=== PATIENT | male | born 1975 | race Caucasian/White ===

== ENCOUNTER 2017-07-27 14:03 | Inpatient (IN) | payer MEDICAID, OTHER ==
[~2017-07-27] VITALS: Ht 180.3 cm; Wt 100.5 kg
[~2017-07-27 14:03] MED LIST: DIFL500T PO; METF500T4 PO
[2017-07-27] MEDS ORDERED: PIPER-TAZO 3.375 GM IV (PMX) 50 ML IVPB STA (16:25)
[2017-07-27] MEDS ORDERED: VANCOMYCIN 1 GM (PMX) 250 ML IVPB STA (16:25)
[2017-07-27] MEDS ORDERED: SOD CHLORIDE 0.9% 1,000 ML IV STA (16:25)
--- NOTE | 2017-07-27 16:40 | ERD ---
ER Documentation Chief Complaint Chief Complaint SENT BY [facility] FOR LT 2ND TOE INFECTION TREATMENT HPI 41-year-old male with a history of type 2 diabetes on metformin presenting to the ER complaining of left foot second toe infection. His symptoms started about 5 days ago. He noticed some swelling of the toe and redness. He does not feel pain because of his peripheral neuropathy. Over the last few days it has been getting worse and now he has red streaking going up his inner leg and thigh. He does feel pain in those areas. He has had associated fevers and chills. He has noticed some purulent drainage from the base of the toenail. He went to [place] this morning and had a workup there as well. He was seen by a lavatory attendant and admission was recommended for IV antibiotics. His toenail was removed with some purulent drainage. He was also found to have an old underlying fracture. He was given oral antibiotics but told to follow-up at another hospital for admission as he is not a [facility] member. ROS All systems reviewed and are negative except as per history of present illness. Medications Home Meds Active Scripts Diflunisal (Dolobid) 500 Mg Tablet, 500 MG PO BID for PAIN, #8 TAB With Food or milk Prov:ELIZA WELLS MD 12/14/15 Metformin* (Glucophage*) 500 Mg Tab, 500 MG PO DAILY, #30 TAB Prov:ELIZA WELLS MD 12/14/15 Allergies Allergies: Coded Allergies: No Known Allergy (Unverified , 12/14/15) PMhx/Soc Medical and Surgical Hx: pt denies Surgical Hx History of Surgery: No Hx Neurological Disorder: No Hx Respiratory Disorders: No Hx Cardiac Disorders: No Hx Psychiatric Problems: No Hx Miscellaneous Medical Probl: Yes (Diabetes) Hx Alcohol Use: Yes (Occasionally) Hx Substance Use: No Hx Tobacco Use: No Smoking Status: Never smoker FmHx Family History: No coronary disease Physical Exam Vitals Vital Signs Date Time Temp Pulse Resp B/P Pulse Ox O2 Delivery O2 Flow Rate FiO2 07/27/17 14:11 99.1 111 18 123/73 98 Physical Exam Const: Well-appearing, no apparent distress Head: Atraumatic Eyes: Normal Conjunctiva ENT: Normal External Ears, Nose and Mouth. Neck: Full range of motion..~ No meningismus. Resp: Clear to auscultation bilaterally Cardio: tachycardic, regular rhythm, no murmurs Abd: Soft, non tender, non distended. Normal bowel sounds Skin: No petechiae or rashes Back: No midline or flank tenderness Ext: No cyanosis or edema. Left lower extremity: left foot second toe with sausagelike swelling and erythema. The nail has been removed. There is some sanguinous cloudy drainage from the nail bed. No tenderness to palpation. There is warmth to palpation. There is a lymphangitis going up the foot up to the level of the inner thigh. There is also petechiae of the inner lower leg and thigh. 2+ distal pulses. Right lower extremity unremarkable. No calf tenderness Neur: Awake and alert Psych: Normal Mood and Affect Result Diagram: 07/27/17 1645 07/27/17 1645 Results 24 hrs Laboratory Tests Test 07/27/17 16:45 White Blood Count 6.410^3/ul Red Blood Count 4.4510^6/ul Hemoglobin 14.4g/dl Hematocrit 40.9% Mean Corpuscular Volume 91.9fl Mean Corpuscular Hemoglobin 32.4pg Mean Corpuscular Hemoglobin Concent 35.2g/dl Red Cell Distribution Width 11.7% Platelet Count 97623^3/UL Mean Platelet Volume 11.0fl Neutrophils % 66.8% Lymphocytes % 16.8% Monocytes % 14.6% Eosinophils % 1.2% Basophils % 0.3% Nucleated Red Blood Cells % 0.0/100WBC Neutrophils # 4.310^3/ul Lymphocytes # 1.110^3/ul Monocytes # 0.910^3/ul Eosinophils # 0.110^3/ul Basophils # 0.010^3/ul Nucleated Red Blood Cells # 0.010^3/ul Prothrombin Time 13.5Sec Prothrombin Time Ratio 1.1 INR International Normalized Ratio 1.03 Activated Partial Thromboplast Time 30.1Sec Sodium Level 135mmol/L Potassium Level 4.4mmol/L Chloride Level 98mmol/L Carbon Dioxide Level 24mmol/L Anion Gap 17 Blood Urea Nitrogen 24mg/dl Creatinine 1.02mg/dl Glucose Level 303mg/dl Calcium Level 9.3mg/dl Total Bilirubin 2.4mg/dl Direct Bilirubin 0.00mg/dl Indirect Bilirubin 2.4mg/dl Aspartate Amino Transf (AST/SGOT) 25IU/L Alanine Aminotransferase (ALT/SGPT) 35IU/L Alkaline Phosphatase 83IU/L Total Protein 8.0g/dl Albumin 4.3g/dl Globulin 3.70g/dl Albumin/Globulin Ratio 1.16 Current Medications Medications (Trade) Dose Ordered Sig/Ana Lilia Route PRN Reason Start Time Stop Time Status Last Admin Dose Admin Vancomycin HCl 250 ml @ 125 mls/hr ONCE STAT IVPB 07/27/17 16:25 07/27/17 18:24 Piperacillin Sod/ Tazobactam Sod 50 ml @ 100 mls/hr ONCE STAT IVPB 07/27/17 16:25 07/27/17 16:54 DC 07/27/17 17:00 Sodium Chloride (NS) 1,000 ml @ 1,000 mls/hr Q1H STAT IV 07/27/17 16:25 07/27/17 17:24 DC 07/27/17 17:30 Ondansetron HCl (Zofran Inj) 4 mg BRIDGE ORDER PRN IV NAUSEA AND/OR VOMITING 07/27/17 18:00 07/28/17 17:59 Acetaminophen (Tylenol Tab) 650 mg ER BRIDGE PRN PO MILD PAIN/FEVER 07/27/17 18:00 07/28/17 17:59 Procedures/MDM EMERGENT LABS AND DIAGNOSTIC STUDIES: Lab Results above were reviewed and interpreted by me. CBC: thrombocytopenia. no leukocytosis, CMP: elevated BUN, hyperglycemia, isolated elevated T BIli Radiology: Reviewed outside films for foot XRay done at [place]. Shows old healing 2nd phalanx fracture with large callous. Initial Nursing notes reviewed. Previous Medical Records requested via the Electronic Health Record. EMERGENCY DEPARTMENT COURSE / MEDICAL DECISION MAKING: Patient is presenting with left lower extremity cellulitis of the second toe with lymphangitis up his leg. There is no evidence of sepsis at this time. Blood cultures were done. IV antibiotics were started for diabetic foot infection. Patient's blood sugar is out of control but there is no evidence of acidosis. IV fluids given. Patient is high risk for worsening of his infection and will likely need admission for observation and IV antibiotics. At this time there is no evidence of necrotizing soft tissue infection. Accepting Care Team: Current data and ongoing care discussed. Time: Time of admission Primary Provider: Panel team Departure Diagnosis: Primary Impression: Cellulitis of left toe Additional Impressions: Acute lymphangitis of left lower extremity Hyperglycemia due to type 2 diabetes mellitus Diabetes mellitus local intermodal truck driver insulin use: without local intermodal truck driver use Qualified Code : E11.65 - Type 2 diabetes mellitus with hyperglycemia, without long-term current use of insulin Condition: JESUSITA Singleton MD Jul 27, 2017 16:40
[2017-07-27 17:18] LABS: BASOPHILS % 0.3 % (0.0-2.0); EOSINOPHILS # 0.1 10^3/ul (0.0-0.5); EOSINOPHILS % 1.2 % (0.0-7.0); HEMATOCRIT 40.9 % (42.0-52.0); HEMOGLOBIN 14.4 g/dl (14.0-18.0); LYMPHOCYTES # 1.1 10^3/ul (0.8-2.9); LYMPHOCYTES % 16.8 % (15.0-51.0); MEAN CORPUSCULAR HEMOGLOBIN 32.4 pg (29.0-33.0); MEAN CORPUSCULAR HGB CONC 35.2 g/dl (32.0-37.0); MEAN CORPUSCULAR VOLUME 91.9 fl (82.0-101.0); MONOCYTE # 0.9 10^3/ul (0.3-0.9); MONOCYTES % 14.6 % (0.0-11.0); NEUTROPHIL # 4.3 10^3/ul (1.6-7.5); NEUTROPHILS % 66.8 % (39.0-77.0); PLATELET COUNT 134 10^3/UL (140-415); POSITIVE DIFF @See below; RED BLOOD COUNT 4.45 10^6/ul (4.70-6.10); RED CELL DISTRIBUTION WIDTH 11.7 % (11.5-14.5); WHITE BLOOD COUNT 6.4 10^3/ul (4.8-10.8)
[2017-07-27 17:33] LABS: INR 1.03; PROTIME 13.5 Sec (12.2-14.2); PT RATIO 1.1
[2017-07-27 17:34] LABS: PARTIAL THROMBOPLASTIN TIME 30.1 Sec (25.0-35.0)
[2017-07-27 17:45] LABS: ALBUMIN 4.3 g/dl (3.3-4.9); ALBUMIN/GLOBULIN RATIO 1.16; BILIRUBIN,INDIRECT 2.4 mg/dl (0-1.1); BILIRUBIN,TOTAL 2.4 mg/dl (0.2-1.3); CALCIUM 9.3 mg/dl (8.4-10.2); CREATININE 1.02 mg/dl (0.61-1.24); POTASSIUM 4.4 mmol/L (3.5-5.1)
[2017-07-27] MEDS ORDERED: ACETAMINOPHEN 325 MG TAB PO PRN (18:00)
[2017-07-27] MEDS ORDERED: ONDANSETRON 4 MG INJ IV PRN ×2 (18:00→22:30)
[2017-07-27 19:15] VITALS: TEMP 99.6
[2017-07-27 20:41] VITALS: BP 134/81; RESP 20
[2017-07-27 22:06] VITALS: Ht 180.3 cm; Wt 100.5 kg
[2017-07-27] MEDS ORDERED: BISACODYL (EC) 5 MG TAB PO PRN (22:30)
[2017-07-27] MEDS ORDERED: DOCUSATE SODIUM 100 MG CAP PO PRN (22:30)
[2017-07-27] MEDS ORDERED: NACL 0.9% 3 ML SYG IV SCH (22:30)
[2017-07-27] MEDS ORDERED: VANCOMYCIN IV PER PHARMACY XX SCH (22:30)
--- NOTE | 2017-07-27 22:36 | HP ---
Date/Time of Note Date/Time of Note DATE: 07/27/17 TIME: 22:23 Assessment/Plan VTE Prophylaxis VTE Prophylaxis Intervention: LMWH Lines/Catheters IV [facility]ter [facility]from [facility]): Saline Lock Assessment/Plan Chief Complaint/Hosp Course This is a 41-year-old male being admitted to the [facility] floor for: #1 Left great toe infection: I was not able to examine the toe as it has been wrapped recently but it appears that this may have been an infected ingrown toenail. Will obtain xrays and podiatry consult. Started on vancomycin, will add zosyn as well at this time. Morphine for pain. #2 Left lower extremity cellulitis: no blanching rash of the left lower extremity up to the upper thigh. Worse around the calf area. Vanco and zosyn at this time. No crepitus on exam or swelling to suggest underlying gas. Will continue abx and descalate as indicated. Consider ID consultation if indicated. #3 Uncontrolled Diabetes: on metformin, but non compliant. Will check a1c. urine microalbumin. ISS, will need to start lantus likely. #4 Numbness/tingling: patient reports pins and needle and numbness of extremities at times. Possibly DM neuropathy. Will initiate gabapentin 300 mg 1 now. #5 Obesity: a1c, lipid panel, tsh #6 DVT GI prophylaxis: Lovenox, no GI prophylaxis indicated Further treatment strategy will be implemented as per the clinical course Problems: HPI/ROS Admit Date/Time Admit Date/Time Jul 27, 2017 at 17:38 Hx of Present Illness CC; left toe infection, rash 41-year-old male with a history of type 2 diabetes on metformin presenting to the ER complaining of left foot second toe infection. His symptoms started about 5 days ago. He noticed some swelling of the toe and redness. He does not feel pain because of his peripheral neuropathy. Over the last few days it has been getting worse and now he has red streaking going up his inner leg and thigh. He does feel pain in those areas. He has had associated fevers and chills. He has noticed some purulent drainage from the base of the toenail. He went to [place] this morning and had a workup there as well. He was seen by a boot turner and admission was recommended for IV antibiotics. His toenail was removed with some purulent drainage. He was also found to have an old underlying fracture. He was given oral antibiotics but told to follow-up at another hospital for admission as he is not a [facility] member. he reports he has diabetes for 6 years but has not been compliant with his meds as they give him an upset stomach. also he did not have insurance so was not able to follow up with a PMD. allergies: nkda meds: see efrain RICHARDS Const: As per HPI Eyes : No pain discharge or redness or change in visual acuity ENT: No pain, sore throat, congestion, congestion, dysphagia or discharge Respiratory: No shortness of breath, cough, sputum, wheezing, or pleuritic pain Cardiovascular: No chest pain, palpitation, PND, or edema GI : no change in appetite, abdominal pain, nausea, vomiting, diarrhea, constipation, or change in the color his stool Genitourinary: No dysuria, hematuria, flank pain , discharge or CVA tenderness Musculoskeletal: As per HPI Skin: As per HPI Neuro: No headache, dizziness, syncope, seizure, focal weakness Endocrine: No polyuria, polydipsia, temperature intolerance Psych: No hallucination, depression, anxiety or suicidal ideation PMH/Family/Social Past Medical History DM, hx of right elbow infection/cellulitis Past Surgical History right elbow debridement/sx Family History Significant Family History: hypertension Social History Alcohol Use: occasionally Smoking Status: Never smoker Drug Use: none Exam/Review of Systems Vital Signs Vitals Vital Signs Date Time Temp Pulse Resp B/P Pulse Ox O2 Delivery O2 Flow Rate FiO2 07/27/17 20:41 98.9 96 20 134/81 98 07/27/17 19:15 Room Air Exam Exam General: Is lying in bed in no acute distress HEENT: Atraumatic, normocephalic. The pupils are equal, round and reactive. Extraocular motor are intact Neck: Supple with full range of motion. No rigidity or meningismus Chest: Nontender Lungs: Clear to auscultation bilaterally no crackles rales or wheezing Heart: Normal S1-S2, Regular rhythm and rate. No murmur, S3, or S4 Abdomen: Soft , nontender, nondistended , bowel sounds are present. No guarding no rebound tenderness , No masses or organomegaly. No costovertebral temporal angle mass Extremities: Left great toe wrapped in dressing, no wheezing apparently dressing , Neurologic: Normal mental status, speech normal, cranial nerves II through XII are intact, motor and sensory are intact, no focal weakness Skin: Rash of the left lower extremity from the level of the foot to the calf up to the thigh appears to be cellulitic in nature, more concentrated at the calf area. No crepitus along the left lower extremity on palpation no edema noted. Tenderness at the area of the rash on the calf. Labs Result Diagram: 07/27/17 1645 07/27/17 1645 DEMETRICE LARA Jul 27, 2017 22:36
[2017-07-27] MEDS ORDERED: GLUCOSE GEL 15 GRAM TUBE BUCCAL PRN (22:45)
[2017-07-27] MEDS ORDERED: DEXTROSE 50% 50 ML SYRINGE IV PRN ×2 (22:45)
[2017-07-27] MEDS ORDERED: GLUCOSE GEL 15 GRAM TUBE PO PRN ×2 (22:45)
[2017-07-27] MEDS ORDERED: GLUCAGON 1 MG INJ IM PRN (22:45)
[2017-07-27] MEDS ORDERED: GABAPENTIN 300 MG CAP PO ONE (23:00)
[2017-07-27] MEDS: HYDROCODONE/APAP (5/325) TAB PO PRN (23:22)
[2017-07-28] MEDS: PIPER-TAZO 3.375 GM IV (PMX) 50 ML IVPB SCH ×5 (00:17→23:53)
[2017-07-28] MEDS: INSULIN ASPART [NOVOLOG] 3 ML PEN SC SCH ×5 (01:27→20:48)
[2017-07-28] MEDS ORDERED: ACCU-CHEK XX SCH (02:00)
[2017-07-28] MEDS: ACCU-CHEK XX SCH (02:00)
[2017-07-28 02:25] VITALS: BP 130/82; RESP 18
[2017-07-28] MEDS: VANCOMYCIN 1.5 GM in SOD CHLORIDE 0.9% 250 ML IVPB SCH ×2 (04:10→14:24)
[2017-07-28 06:27] LABS: BASOPHILS % 0.7 % (0.0-2.0); EOSINOPHILS # 0.2 10^3/ul (0.0-0.5); HEMATOCRIT 40.4 % (42.0-52.0); HEMOGLOBIN 13.7 g/dl (14.0-18.0); LYMPHOCYTES # 1.5 10^3/ul (0.8-2.9); MEAN CORPUSCULAR HGB CONC 33.9 g/dl (32.0-37.0); MEAN CORPUSCULAR VOLUME 94.4 fl (82.0-101.0); MEAN PLATELET VOLUME 11.3 fl (7.4-10.4); MONOCYTE # 1.1 10^3/ul (0.3-0.9); MONOCYTES % 20.1 % (0.0-11.0); NEUTROPHIL # 2.8 10^3/ul (1.6-7.5); NEUTROPHILS % 49.7 % (39.0-77.0); PLATELET COUNT 124 10^3/UL (140-415); RED BLOOD COUNT 4.28 10^6/ul (4.70-6.10); RED CELL DISTRIBUTION WIDTH 11.8 % (11.5-14.5); WHITE BLOOD COUNT 5.7 10^3/ul (4.8-10.8)
[2017-07-28] MEDS ORDERED: PENDING SANTYL ORDER FOR WOUND CARE XX PRN (06:30)
[2017-07-28 06:59] LABS: ALBUMIN 3.5 g/dl (3.3-4.9); ALBUMIN/GLOBULIN RATIO 0.92; BILIRUBIN,INDIRECT 2.3 mg/dl (0-1.1); BILIRUBIN,TOTAL 2.3 mg/dl (0.2-1.3); CHOL/HDL RATIO 4.1 RATIO; CREATININE 0.9 mg/dl (0.61-1.24); POTASSIUM 4.5 mmol/L (3.5-5.1); TOTAL PROTEIN 7.3 g/dl (6.1-8.1)
[2017-07-28 07:05] VITALS: BP 128/82; RESP 18
[2017-07-28 07:24] LABS: THYROID STIMULATING HORMONE 2.45 MIU/L (0.465-4.680)
[2017-07-28] MEDS ORDERED: INSULIN ASPART [NOVOLOG] 3 ML PEN SC SCH (08:15)
[2017-07-28] MEDS: HYDROCODONE/APAP (5/325) TAB PO PRN (08:45)
[2017-07-28] MEDS: ENOXAPARIN 40 MG/0.4 ML SYG SC SCH (08:49)
--- NOTE | 2017-07-28 09:25 | RADRPT ---
PROCEDURE: XR Left Foot. CLINICAL INDICATION: Left foot pain. Left first toe infection. TECHNIQUE: Three views. Frontal, lateral, and oblique. COMPARISON: None. FINDINGS: There is no fracture or dislocation. There is soft tissue swelling overlying the first toe and second toe. There is chronic fusion of the second proximal interphalangeal joint. The articular surfaces are oth erwise seen. There is no lytic or blastic lesion. There is no radiopaque foreign body. IMPRESSION: 1. Soft tissue swelling overlying the first and second toe. 2. 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 3. Otherwise unremarkable images of the left foot. RPTAT: QQ .Favio Lopez MD, MD Date Time Electronically viewed and signed by .Favio Lopez MD, on 07/28/2017 09:25 .R/
--- NOTE | 2017-07-28 13:25 | PN ---
Date/Time of Note Date/Time of Note DATE: 07/28/17 TIME: 13: Assessment/Plan VTE Prophylaxis VTE Prophylaxis Intervention: LMWH Lines/Catheters IV Catheter Type (from Nrs): Saline Lock Assessment/Plan Assessment/Plan 1. Left first toe infection, I&D per body die maker today, on antibiotics 2. DM with neurological manifestation, 3. Peripheral neuropathy with numbness on lower extremities, no pain 4. DVT GI prophylaxis: Lovenox Subjective 24 Hr Interval Summary Free Text/Dictation afebrile. Exam/Review of Systems Vital Signs Vitals Vital Signs Date Time Temp Pulse Resp B/P Pulse Ox O2 Delivery O2 Flow Rate FiO2 07/28/17 07:05 97.6 79 18 128/82 100 07/27/17 19:15 Room Air Intake and Output 07/27/17 07/27/17 07/28/17 15:00 23:00 07:00 Intake Total 1090 ml Balance 1090 ml Exam Constitutional: alert, oriented, well developed Psych: nl mood/affect, no complaints Head: atraumatic, normocephalic Eyes: EOMI, nl conjunctiva, nl lids ENMT: nl external ears & nose, nl lips & teeth, nl nasal mucosa & septum Neck: non-tender, supple Respiratory: clear to auscultation, normal air movement, No congested cough, No crackles/rales, No diminished breath sounds, No intercostal retraction, No labored breathing, No other, No respirations, No tactile fremitus, No wheezing Cardiovascular: nl pulses, regular rate and rhythm, No S3, No S4, No bruits, No diastolic murmur, No edema, No gallop, No irregular rhythm, No jugular venous distention (JVD), No murmurs/extra sounds, No other, No rub, No systolic murmur Gastrointestinal: nl liver, spleen, non-tender, soft, No ascites, No bowel sounds, No distended, No firm, No hepatomegaly, No mass , No other, No rebound or guarding, No splenomegaly, No surgical scars, No tender Musculoskeletal: nl extremities to inspection Extremities: normal pulses, other (left 1st toe lesion), No calf tenderness, No clubbing, No cyanosis, No edema, No palpable cord, No pitting pedal edema Neurological: STEAMFITTER APPRENTICE II-XII intact, nl mental status, nl speech, nl strength Skin: nl turgor Lymph: nl lymph nodes Results Result Diagram: 07/28/17 0535 07/28/17 0535 Results 24 hrs Laboratory Tests Test 07/27/17 16:45 07/27/17 23:12 07/28/17 01:20 07/28/17 04:07 White Blood Count 6.4 Red Blood Count 4.45 L Hemoglobin 14.4 Hematocrit 40.9 L Mean Corpuscular Volume 91.9 Mean Corpuscular Hemoglobin 32.4 Mean Corpuscular Hemoglobin Concent 35.2 Red Cell Distribution Width 11.7 Platelet Count 134 L Mean Platelet Volume 11.0 H Neutrophils % 66.8 Lymphocytes % 16.8 Monocytes % 14.6 H Eosinophils % 1.2 Basophils % 0.3 Nucleated Red Blood Cells % 0.0 Neutrophils # 4.3 Lymphocytes # 1.1 Monocytes # 0.9 Eosinophils # 0.1 Basophils # 0.0 Nucleated Red Blood Cells # 0.0 Prothrombin Time 13.5 Prothrombin Time Ratio 1.1 INR International Normalized Ratio 1.03 Activated Partial Thromboplast Time 30.1 Sodium Level 135 Potassium Level 4.4 Chloride Level 98 Carbon Dioxide Level 24 Anion Gap 17 H Blood Urea Nitrogen 24 H Creatinine 1.02 Glucose Level 303 H Calcium Level 9.3 Total Bilirubin 2.4 H Direct Bilirubin 0.00 Indirect Bilirubin 2.4 H Aspartate Amino Transf (AST/SGOT) 25 Alanine Aminotransferase (ALT/SGPT) 35 Alkaline Phosphatase 83 Total Protein 8.0 Albumin 4.3 Globulin 3.70 H Albumin/Globulin Ratio 1.16 Bedside Glucose 244 H 295 H 265 H Test 07/28/17 05:35 07/28/17 08:03 07/28/17 12:21 White Blood Count 5.7 Red Blood Count 4.28 L Hemoglobin 13.7 L Hematocrit 40.4 L Mean Corpuscular Volume 94.4 Mean Corpuscular Hemoglobin 32.0 Mean Corpuscular Hemoglobin Concent 33.9 Red Cell Distribution Width 11.8 Platelet Count 124 L Mean Platelet Volume 11.3 H Neutrophils % 49.7 Lymphocytes % 26.0 Monocytes % 20.1 H Eosinophils % 3.0 Basophils % 0.7 Nucleated Red Blood Cells % 0.0 Neutrophils # 2.8 Lymphocytes # 1.5 Monocytes # 1.1 H Eosinophils # 0.2 Basophils # 0.0 Nucleated Red Blood Cells # 0.0 Sodium Level 140 Potassium Level 4.5 Chloride Level 103 Carbon Dioxide Level 29 Anion Gap 13 Blood Urea Nitrogen 22 H Creatinine 0.90 Glucose Level 260 H Hemoglobin A1c 11.3 H Calcium Level 9.0 Magnesium Level 2.0 Total Bilirubin 2.3 H Direct Bilirubin 0.00 Indirect Bilirubin 2.3 H Aspartate Amino Transf (AST/SGOT) 25 Alanine Aminotransferase (ALT/SGPT) 37 Alkaline Phosphatase 66 Total Protein 7.3 Albumin 3.5 Globulin 3.80 H Albumin/Globulin Ratio 0.92 Triglycerides Level 126 Cholesterol Level 125 LDL Cholesterol, Calculated 70 HDL Cholesterol 30 Cholesterol/HDL Ratio 4.1 Thyroid Stimulating Hormone (TSH) 2.450 Bedside Glucose 237 H 204 Medications Medications Current Medications Ondansetron HCl (Zofran Inj) 4 mg Q6H PRN IV NAUSEA AND/OR VOMITING; Start at 22:30 Acetaminophen (Tylenol Tab) 650 mg Q6H PRN PO PAIN LEVEL 1-3 OR FEVER; Start 07/27/17 at 22:30 Acetaminophen/ Hydrocodone Bitart ([place] (5/325)) 2 tab Q6H PRN PO SEVERE PAIN LEVEL 7-10 Last administered on 07/28/17 08:45; Admin Dose 2 TAB; Start 07/27 at 22:30 Docusate Sodium (Colace) 100 mg Q12H PRN PO CONSTIPATION; Start 07/27/17 at 22 :30 Bisacodyl (Dulcolax) 5 mg DAILY PRN PO CONSTIPATION; Start 07/27/17 at 22:30 Enoxaparin Sodium 40 mg 40 mg DAILY SC Last administered on 07/28/17 08:49; Admin Dose 40 MG; Start 07/28/17 at 09:00 Piperacillin Sod/ Tazobactam Sod (Zosyn 3.375gm/ 50 ml (Pmx)) 50 ml @ 100 mls/ hr Q6 IVPB Last administered on 07/28/17 12:27; Admin Dose 100 MLS/HR; Start 07/28/17 at 00:00 Diagnostic Test (Pha) (Accu-Chek) 1 ea 02 XX ; Start 07/28/17 at 02:00 Gabapentin (Neurontin) 300 mg BID PO ; Start 07/28/17 at 21:00; Stop 07/29/17 at 20:59 Miscellaneous Information 1 ea NOTE XX ; Start 07/27/17 at 22:45 Glucose (Glutose) 15 gm Q15M PRN PO DECREASED GLUCOSE; Start 07/27/17 at 22:45 Glucose (Glutose) 22.5 gm Q15M PRN PO DECREASED GLUCOSE; Start 07/27/17 at 22: 45 Dextrose (D50w Syringe) 25 ml Q15M PRN IV DECREASED GLUCOSE; Start 07/27/17 at 22:45 Dextrose (D50w Syringe) 50 ml Q15M PRN IV DECREASED GLUCOSE; Start 07/27/17 at 22:45 Glucagon (Glucagen) 1 mg Q15M PRN IM DECREASED GLUCOSE; Start 07/27/17 at 22: 45 Glucose 15 gm 15 gm Q15M PRN BUCCAL DECREASED GLUCOSE; Start 07/27/17 at 22:45 Vancomycin HCl/ Sodium Chloride (Vancocin/NS) 250 ml @ 83.333 mls/ hr Q12H IVPB Last administered on 07/28/17t 04:10; Admin Dose 83.333 MLS/HR; Start at 03:00 Miscellaneous Information (Pending Santyl Order For Wound Care) This patient roberts... PRN PRN XX WOUND CARE; Start 07/28/17 at 06:30 Miscellaneous Information (*Rx Drug Level Order Reminder*) VANCO TROUGH @ 1, 400 ON ... ONCE ONCE XX ; Start 07/29/17 at 14:00; Stop 07/29/17 at 14:01 Sodium Hypochlorite (Dakin'S (1/4 Strength)) 1 applic BID IRR ; Start 07/28/17 at 21:00 Silver Sulfadiazine (Thermazene 1% 25 Gm) 1 applic BID TOP ; Start 07/28/17 at 21:00 JESUS OSHEA MD Jul 28, 2017 13:25
[2017-07-28 14:11] VITALS: BP 123/79; RESP 18
[2017-07-28] MEDS: metFORMIN 500 MG TAB PO SCH (17:17)
[2017-07-28 19:53] VITALS: BP 109/66; RESP 20
[2017-07-28] MEDS: SODIUM HYPOCHLORITE 0.125% 473 ML BTL IRR SCH (20:44)
[2017-07-28] MEDS: GABAPENTIN 300 MG CAP PO SCH (20:44)
[2017-07-28] MEDS: SILVER SULFADIAZINE 1% 25 GM CR TOP SCH (20:45)
[2017-07-29 02:18] VITALS: BP 133/81; RESP 20
[2017-07-29] MEDS: VANCOMYCIN 1.5 GM in SOD CHLORIDE 0.9% 250 ML IVPB SCH ×2 (02:46→15:39)
[2017-07-29] MEDS: ACCU-CHEK XX SCH (02:49)
[2017-07-29] MEDS: PIPER-TAZO 3.375 GM IV (PMX) 50 ML IVPB SCH ×3 (05:35→19:38)
[2017-07-29 06:20] LABS: BASOPHILS % 0.5 % (0.0-2.0); EOSINOPHILS # 0.2 10^3/ul (0.0-0.5); EOSINOPHILS % 3.6 % (0.0-7.0); HEMATOCRIT 37.6 % (42.0-52.0); HEMOGLOBIN 13.2 g/dl (14.0-18.0); LYMPHOCYTES # 1.5 10^3/ul (0.8-2.9); LYMPHOCYTES % 26.2 % (15.0-51.0); MEAN CORPUSCULAR HEMOGLOBIN 32.8 pg (29.0-33.0); MEAN CORPUSCULAR HGB CONC 35.1 g/dl (32.0-37.0); MEAN CORPUSCULAR VOLUME 93.5 fl (82.0-101.0); MEAN PLATELET VOLUME 11.3 fl (7.4-10.4); MONOCYTE # 0.8 10^3/ul (0.3-0.9); MONOCYTES % 13.8 % (0.0-11.0); NEUTROPHIL # 3.3 10^3/ul (1.6-7.5); NEUTROPHILS % 55.4 % (39.0-77.0); PLATELET COUNT 140 10^3/UL (140-415); POSITIVE DIFF @See below; RED BLOOD COUNT 4.02 10^6/ul (4.70-6.10); RED CELL DISTRIBUTION WIDTH 11.7 % (11.5-14.5); WHITE BLOOD COUNT 5.9 10^3/ul (4.8-10.8)
[2017-07-29 06:48] LABS: CALCIUM 8.7 mg/dl (8.4-10.2); CREATININE 0.9 mg/dl (0.61-1.24); POTASSIUM 4.2 mmol/L (3.5-5.1)
[2017-07-29 07:32] VITALS: BP 138/89; RESP 20
[2017-07-29] MEDS: SODIUM HYPOCHLORITE 0.125% 473 ML BTL IRR SCH ×2 (09:00→21:09)
[2017-07-29] MEDS: SILVER SULFADIAZINE 1% 25 GM CR TOP SCH ×2 (09:00→21:09)
[2017-07-29] MEDS: metFORMIN 500 MG TAB PO SCH ×2 (09:00→17:38)
[2017-07-29] MEDS: GABAPENTIN 300 MG CAP PO SCH (09:00)
[2017-07-29] MEDS: ENOXAPARIN 40 MG/0.4 ML SYG SC SCH (09:08)
[2017-07-29] MEDS: INSULIN ASPART [NOVOLOG] 3 ML PEN SC SCH ×5 (09:09→21:19)
[2017-07-29] MEDS: ACETAMINOPHEN 325 MG TAB PO PRN (09:11)
--- NOTE | 2017-07-29 13:31 | PN ---
Date/Time of Note Date/Time of Note DATE: 07/29/17 TIME: 13:26 Assessment/Plan VTE Prophylaxis VTE Prophylaxis Intervention: LMWH Lines/Catheters IV Catheter Type (from Nrsg): Saline Lock Assessment/Plan Assessment/Plan 1. Left first toe infection, bedside I&D per Dr. Gannon on 07/28/2017, on antibiotics, follow up with culture, needs 4-6 weeks iv antibiotics per Dr. Gannon with concern of osteomyelitis 2. DM with neurological manifestation, add lantus 3. Peripheral neuropathy with numbness on lower extremities, no pain 4. DVT GI prophylaxis: Lovenox Subjective 24 Hr Interval Summary Free Text/Dictation afebrile Exam/Review of Systems Vital Signs Vitals Vital Signs Date Time Temp Pulse Resp B/P Pulse Ox O2 Delivery O2 Flow Rate FiO2 07/29/17 07:32 97.8 83 20 138/89 98 07/27/17 19:15 Room Air Intake and Output 07/28/17 07/28/17 07/29/17 15:00 23:00 07:00 Intake Total 300 ml 780 ml 950 ml Balance 300 ml 780 ml 950 ml Exam Constitutional: alert, oriented, well developed Psych: nl mood/affect, no complaints Head: atraumatic, normocephalic Eyes: EOMI, nl conjunctiva, nl lids ENMT: nl external ears & nose, nl lips & teeth, nl nasal mucosa & septum Neck: non-tender, supple Respiratory: clear to auscultation, normal air movement, No congested cough, No crackles/rales, No diminished breath sounds, No intercostal retraction, No labored breathing, No other, No respirations, No tactile fremitus, No wheezing Cardiovascular: nl pulses, regular rate and rhythm, No S3, No S4, No bruits, No diastolic murmur, No edema, No gallop, No irregular rhythm, No jugular venous distention (JVD), No murmurs/extra sounds, No other, No rub, No systolic murmur Gastrointestinal: nl liver, spleen, non-tender, soft, No ascites, No bowel sounds, No distended, No firm, No hepatomegaly, No mass , No other, No rebound or guarding, No splenomegaly, No surgical scars, No tender Musculoskeletal: nl extremities to inspection Extremities: normal pulses, other (left great toe wound) Neurological: CLIENT PROGRAM MANAGER II-XII intact, nl mental status, nl speech, nl strength Results Result Diagram: 07/29/1715 07/29/17 0515 Results 24 hrs Laboratory Tests Test 07/28/17 17:12 07/28/17 20:42 07/29/17 02:49 07/29/17 05:15 Bedside Glucose 177 219 212 White Blood Count 5.9 Red Blood Count 4.02 L Hemoglobin 13.2 L Hematocrit 37.6 L Mean Corpuscular Volume 93.5 Mean Corpuscular Hemoglobin 32.8 Mean Corpuscular Hemoglobin Concent 35.1 Red Cell Distribution Width 11.7 Platelet Count 140 Mean Platelet Volume 11.3 H Neutrophils % 55.4 Lymphocytes % 26.2 Monocytes % 13.8 H Eosinophils % 3.6 Basophils % 0.5 Nucleated Red Blood Cells % 0.0 Neutrophils # 3.3 Lymphocytes # 1.5 Monocytes # 0.8 Eosinophils # 0.2 Basophils # 0.0 Nucleated Red Blood Cells # 0.0 Sodium Level 139 Potassium Level 4.2 Chloride Level 102 Carbon Dioxide Level 28 Anion Gap 13 Blood Urea Nitrogen 20 Creatinine 0.90 Glucose Level 208 Calcium Level 8.7 Test 07/29/17 07:57 07/29/17 11:57 Bedside Glucose 219 240 H Medications Medications Current Medications Ondansetron HCl (Zofran Inj) 4 mg Q6H PRN IV NAUSEA AND/OR VOMITING; Start at 22:30 Acetaminophen (Tylenol Tab) 650 mg Q6H PRN PO PAIN LEVEL 1-3 OR FEVER Last administered on 07/29/17 09:11; Admin Dose 650 MG; Start 07/27/17 at 22:30 Acetaminophen/ Hydrocodone Bitart ([place] (5/325)) 2 tab Q6H PRN PO SEVERE PAIN LEVEL 7-10 Last administered on 07/28/17 08:45; Admin Dose 2 TAB; Start 07/27 at 22:30 Docusate Sodium (Colace) 100 mg Q12H PRN PO CONSTIPATION; Start 07/27/17 at 22 :30 Bisacodyl (Dulcolax) 5 mg DAILY PRN PO CONSTIPATION; Start 07/27/17 at 22:30 Enoxaparin Sodium 40 mg 40 mg DAILY SC Last administered on 07/29/17 09:08; Admin Dose 40 MG; Start 07/28/17 at 09:00 Piperacillin Sod/ Tazobactam Sod (Zosyn 3.375gm/ 50 ml (Pmx)) 50 ml @ 100 mls/ hr Q6 IVPB Last administered on 07/29/17 12:10; Admin Dose 100 MLS/HR; Start 07/28/17 at 00:00 Diagnostic Test (Pha) (Accu-Chek) 1 ea 02 XX Last administered on 07/29/17 02 :49; Admin Dose 1 EA; Start 07/28/17 at 02:00 Gabapentin (Neurontin) 300 mg BID PO Last administered on 07/29/17 09:00; Admin Dose 300 MG; Start 07/28/17 at 21:00; Stop 07/29/17 at 20:59 Miscellaneous Information 1 ea NOTE XX ; Start 07/27/17 at 22:45 Glucose (Glutose) 15 gm Q15M PRN PO DECREASED GLUCOSE; Start 07/27/17 at 22:45 Glucose (Glutose) 22.5 gm Q15M PRN PO DECREASED GLUCOSE; Start 07/27/17 at 22: 45 Dextrose (D50w Syringe) 25 ml Q15M PRN IV DECREASED GLUCOSE; Start 07/27/17 at 22:45 Dextrose (D50w Syringe) 50 ml Q15M PRN IV DECREASED GLUCOSE; Start 07/27/17 at 22:45 Glucagon (Glucagen) 1 mg Q15M PRN IM DECREASED GLUCOSE; Start 07/27/17 at 22: 45 Glucose 15 gm 15 gm Q15M PRN BUCCAL DECREASED GLUCOSE; Start 07/27/17 at 22:45 Vancomycin HCl/ Sodium Chloride (Vancocin/NS) 250 ml @ 83.333 mls/ hr Q12H IVPB Last administered on 07/29/17 02:46; Admin Dose 83.333 MLS/HR; Start at 03:00 Miscellaneous Information (Pending Santyl Order For Wound Care) This patient roberts... PRN PRN XX WOUND CARE; Start 07/28/17 at 06:30 Miscellaneous Information (*Rx Drug Level Order Reminder*) VANCO TROUGH @ 1, 400 ON ... ONCE ONCE XX ; Start 07/29/17 at 14:00; Stop 07/29/17 at 14:01 Sodium Hypochlorite (Dakin'S (1/4 Strength)) 1 applic BID IRR Last administered on 07/28/17 20:44; Admin Dose 1 APPLIC; Start 07/28/17 at 21:00 Silver Sulfadiazine (Thermazene 1% 25 Gm) 1 applic BID TOP Last administered on 07/28/17 20:45; Admin Dose 1 APPLIC; Start 07/28/17 at 21:00 JESUS OSHEA MD Jul 29, 2017 13:31
[2017-07-29 13:40] VITALS: BP 123/81; RESP 20
[2017-07-29] MEDS: HYDROCODONE/APAP (5/325) TAB PO PRN ×2 (13:53→23:49)
--- NOTE | 2017-07-29 14:32 | CONS ---
DATE OF ADMISSION: 07/28/2017 DATE OF CONSULTATION: 07/29/2017 TYPE OF CONSULTATION: Infectious Disease. REASON FOR CONSULTATION: Antibiotic management. HISTORY OF PRESENT ILLNESS: Edwin Vincent is a 41-year-old male admitted to med/surg with left great toe infection. His past problems include: 1. Adult-onset diabetes mellitus on metformin. He has been diabetic for, I believe, 6 years and no ncompliant. He comes in complaining of left foot second toe infection which began 5 days prior to a dmission with swelling of the toe and redness. He has peripheral neuropathy, does not feel pain the re. He has red streaking going up his inner leg and thigh with associated fever and chills. He has noted some purulent drainage from the base of the toenail. He went to [place], had a workup there, was seen by plow shaker and IV antibiotics were recommended. His toenail was removed with some purul ent drainage. He also was found to have an old underlying fracture. He was given oral antibiotics, but told to follow up at another hospital. PAST MEDICAL HISTORY: Operations as outlined. FAMILY HISTORY: Noncontributory. PAST SURGICAL HISTORY: History of right elbow infection, cellulitis and debridement. SOCIAL HISTORY: Does not smoke, drink or abuse drugs. ALLERGIES: NONE TO PENICILLIN, SULFA OR FOODS. MEDICATIONS: Per chart. REVIEW OF SYSTEMS: Noncontributory. PHYSICAL EXAMINATION: GENERAL: The patient is a well-developed, well-nourished male who is awake, responsive, in no acute distress. VITAL SIGNS: Stable. He is afebrile. SKIN: Without generalized rash. HEENT: Within normal limits. NECK: Supple. LYMPH NODES: None palpable. CHEST: Decreased breath sounds at the bases. HEART: Without murmur or gallop. ABDOMEN: Soft, nontender, without organosplenomegaly or masses. EXTREMITIES: Without cyanosis, clubbing, or edema. The left great toe is infected. Toe is wrapped as the toenail was pulled. He also has left lower extremity cellulitis with tracking up the left l ower extremity to the thigh, worse around the calf area. RECTAL AND GENITAL: Deferred. NEUROLOGIC: No focal neurological abnormalities except for decreased sensation in the distal extrem ities and tenderness in the area of the calf. RECTAL AND GENITAL: Exam is deferred. Neurologic evaluation as noted. ANCILLARY LABORATORY DATA: White count is 6.4 on admission. Currently his white count is 5.9, H an d H of 13.2 and 37.6, platelet count 140,000. BUN and creatinine 20/0.9, glucose random was 240. IMAGING: X-ray of the foot: Soft tissue swelling overlying the first and second toes, chronic fusi on of the second proximal interphalangeal joint and otherwise unremarkable images of the left foot. Blood cultures are negative. IMPRESSION AND PLAN: The patient is currently on vancomycin and Zosyn. We will continue him on thi s regimen. I will dictate my findings to the hospitalist. Of note is the fact that the podiatrists are scheduling incision and drainage. Dictated By: MAUREEN MATOS MD, JD/BERNARDINO Conf#: [id number] DID#: [id number] CC: Diamond Cortez MD;*EndCC*
[2017-07-29] MEDS ORDERED: INSULIN ASPART [NOVOLOG] 3 ML PEN SC SCH ×2 (17:45→18:00)
--- NOTE | 2017-07-29 18:26 | CONS ---
DATE OF ADMISSION: 07/28/2017 DATE OF CONSULTATION: 07/29/2017 REASON FOR CONSULTATION: Left second toe infection. REFERRING PHYSICIAN: Marcus Lee MD. HISTORY OF PRESENT ILLNESS: This is a 41-year-old gentleman who is admitted for infected ingrowing nail to the left foot with no relief as an outpatient. He was initiated on empiric antibiotics incl uding vancomycin and Zosyn. There is a suspicion for osteomyelitis. The patient had been treated i n the past at [facility] and was also recommended IV antibiotics and told that he had an old underlying fracture and may need an amputation. The patient was told to follow up elsewhere since he was not a [facility] member. PAST MEDICAL HISTORY: Diabetes type 2, poorly controlled, obesity. ALLERGIES: NONE. MEDICATIONS: Include vancomycin, Silvadene, Zosyn and Dakin's. PHYSICAL EXAMINATION: VITAL SIGNS: Temperature 97.6, pulse 80, respiratory rate 20, blood pressure 123/81, pulse ox 96%. GENERAL: Patient lying supine, alert and oriented, in no acute distress. Regular respiration. HEAD: Normocephalic, atraumatic. EXTREMITIES: The patient with 2+ popliteal, DP, PT pulses. Left second toe swollen like a sausage. The nail is avulsed and there is an ulceration distal aspect of the toe which tunnels 3 cm with pa lpable bone and presence of purulent drainage. Patient with absent protective sensation. X-RAYS: Soft tissue swelling over the second toe. Chronic fusion of the PIPJ. LABORATORIES: WBC 5.9, hemoglobin 13.2, hematocrit 37.6, platelets 140. Glucose 240. ASSESSMENT: 1. Left second toe ulceration. History of infected ingrowing nail, chronic. 2. Abscess, left second toe. 3. Cellulitis. 4. Edema. 5. Diabetes type 2 with peripheral neuropathy and hypoglycemia. 6. Lack of access to care. The patient without insurance. PLAN: Patient seen and evaluated, discussed diagnosis, treatment options. Given the severity, at isk for amputation of toe. Patient elected salvage. At this time, recommend incision and drainage for cleansing the tunneling wound. Consent had been obtained. PROCEDURE: At this time, the left second toe was incised, dorsal aspect, of approximately 2 cm. Th ere is purulent drainage. Cultures obtained. Was irrigated with Dakin's and packed open. The willie ent tolerated procedure well. Estimated blood loss of less 5 mL. Hemostasis achieved with compress ion. Discussed plan of care with the medical team and given the complexity of ulceration, including expos ed bone and chronicity of infection, suspect osteomyelitis, recommend antibiotics for 4 to 6 weeks. Infectious Disease has seen the patient and patient currently on vancomycin and Zosyn. Anticipate need for outpatient wound care. Dictated By: CLAUS ZAYAS/BERNARDINO Conf#: [id number] DID#: [id number]
[2017-07-29 20:14] VITALS: BP 113/67; RESP 18
[2017-07-29] MEDS: VANCOMYCIN 1 GM in NS 250 ML IVPB SCH (23:45)
[2017-07-30] MEDS: PIPER-TAZO 3.375 GM IV (PMX) 50 ML IVPB SCH ×5 (00:35→23:43)
[2017-07-30 02:09] VITALS: BP 123/77; RESP 18
[2017-07-30] MEDS: ACCU-CHEK XX SCH (02:32)
[2017-07-30 07:43] VITALS: BP 148/94; RESP 16
[2017-07-30] MEDS: INSULIN ASPART [NOVOLOG] 3 ML PEN SC SCH ×7 (08:30→21:00)
[2017-07-30] MEDS: metFORMIN 500 MG TAB PO SCH ×2 (08:42→17:27)
[2017-07-30] MEDS: VANCOMYCIN 1 GM in NS 250 ML IVPB SCH ×2 (08:43→15:34)
[2017-07-30] MEDS: SODIUM HYPOCHLORITE 0.125% 473 ML BTL IRR SCH ×2 (08:43→21:16)
[2017-07-30] MEDS: SILVER SULFADIAZINE 1% 25 GM CR TOP SCH ×2 (08:44→21:17)
[2017-07-30] MEDS: ENOXAPARIN 40 MG/0.4 ML SYG SC SCH (08:54)
[2017-07-30] MEDS: INSULIN GLARGINE [LANtus] 3 ML PEN SC SCH (08:54)
--- NOTE | 2017-07-30 13:02 | PN ---
Date/Time of Note Date/Time of Note DATE: 07/30/17 TIME: 13:00 Assessment/Plan VTE Prophylaxis VTE Prophylaxis Intervention: heparin Lines/Catheters IV Catheter Type (from Nrs): Saline Lock Urinary Cath still in place: No Assessment/Plan Problems: (1) Cellulitis of left toe Status: Acute Comment: We will need input from infectious disease about the type of antibiotic and duration of treatment. These note the patient is transitioning to the [facility] effective September 12, 2017 (2) Hyperglycemia due to type 2 diabetes mellitus Status: Acute Comment: Attempt to simplify his regimen. He will not be using insulin as an outpatient he declines injectable therapy Qualifiers: Diabetes mellitus intermediate project manager insulin use: without skilled nursing use Qualified Code: E11.65 - Type 2 diabetes mellitus with hyperglycemia, without long-term current use of insulin Subjective 24 Hr Interval Summary Free Text/Dictation 41-year-old male who was evaluated at the urgent care center at [place] and sent from there to our emergency room for admission for IV antibiotics. Constitutional: no complaints (No fevers chills or sweats) Respiratory: no complaints Cardiovascular: no complaints Gastrointestinal: no complaints Genitourinary: no complaints Neurologic: other (On the left second toe he reports still no sensation but is able to differentiate monofilament on the other toes and foot) Exam/Review of Systems Vital Signs Vitals Vital Signs Date Time Temp Pulse Resp B/P Pulse Ox O2 Delivery O2 Flow Rate FiO2 07/30/17 07:43 97.9 74 16 148/94 98 07/27/17 19:15 Room Air Intake and Output 07/29/17 07/29/17 07/30/17 15:00 23:00 07:00 Intake Total 50 ml 1740 ml 1310 ml Output Total 1050 ml Balance 50 ml 690 ml 1310 ml Exam Constitutional: alert, oriented Neck: non-tender, supple Respiratory: clear to auscultation, normal air movement Cardiovascular: nl pulses, regular rate and rhythm Gastrointestinal: nl liver, spleen, non-tender, soft Extremities: other Results Result Diagram: 07/29/17 0515 07/29/17 0515 Results 24 hrs Laboratory Tests Test 07/29/17 13:33 07/29/17 17:03 07/29/17 21:08 07/30/17 02:25 Vancomycin Level Trough 10.0 Bedside Glucose 188 181 167 Test 07/30/17 08:24 07/30/17 12:20 Bedside Glucose 193 147 Medications Medications Current Medications Ondansetron HCl (Zofran Inj) 4 mg Q6H PRN IV NAUSEA AND/OR VOMITING; Start at 22:30 Acetaminophen (Tylenol Tab) 650 mg Q6H PRN PO PAIN LEVEL 1-3 OR FEVER Last administered on 07/29/17 09:11; Admin Dose 650 MG; Start 07/27/17 at 22:30 Acetaminophen/ Hydrocodone Bitart ([place] (5/325)) 2 tab Q6H PRN PO SEVERE PAIN LEVEL 7-10 Last administered on 07/29/17 23:49; Admin Dose 2 TAB; Start 07/27 at 22:30 Docusate Sodium (Colace) 100 mg Q12H PRN PO CONSTIPATION; Start 07/27/17 at 22 :30 Bisacodyl (Dulcolax) 5 mg DAILY PRN PO CONSTIPATION; Start 07/27/17 at 22:30 Enoxaparin Sodium 40 mg 40 mg DAILY SC Last administered on 07/30/17 08:54; Admin Dose 40 MG; Start 07/28/17 at 09:00 Piperacillin Sod/ Tazobactam Sod (Zosyn 3.375gm/ 50 ml (Pmx)) 50 ml @ 100 mls/ hr Q6 IVPB Last administered on 07/30/17 12:24; Admin Dose 100 MLS/HR; Start 07/28/17 at 00:00 Diagnostic Test (Pha) (Accu-Chek) 1 ea 02 XX Last administered on 07/30/17 02 :32; Admin Dose 1 EA; Start 07/28/17 at 02:00 Miscellaneous Information 1 ea NOTE XX ; Start 07/27/17 at 22:45 Glucose (Glutose) 15 gm Q15M PRN PO DECREASED GLUCOSE; Start 07/27/17 at 22:45 Glucose (Glutose) 22.5 gm Q15M PRN PO DECREASED GLUCOSE; Start 07/27/17 at 22: 45 Dextrose (D50w Syringe) 25 ml Q15M PRN IV DECREASED GLUCOSE; Start 07/27/17 at 22:45 Dextrose (D50w Syringe) 50 ml Q15M PRN IV DECREASED GLUCOSE; Start 07/27/17 at 22:45 Glucagon (Glucagen) 1 mg Q15M PRN IM DECREASED GLUCOSE; Start 07/27/17 at 22: 45 Glucose (Glutose) 15 gm Q15M PRN BUCCAL DECREASED GLUCOSE; Start 07/27/17 at 22:45 [facility]isc[facility] This patient roberts... PRN PRN XX WOUND CARE; Start 07/28/17 at 06:30 Sodium Hypochlorite (Dakin'S (1/4 Strength)) 1 applic BID IRR Last administered on 07/30/17 08:43; Admin Dose 1 APPLIC; Start 07/28/17 at 21:00 Silver Sulfadiazine (Thermazene 1% 25 Gm) 1 applic BID TOP Last administered on 07/30/17 08:44; Admin Dose 1 APPLIC; Start 07/28/17 at 21:00 Insulin Glargine 12 unit 12 unit DAILY@08 SC Last administered on 07/30/17 08 :54; Admin Dose 12 UNIT; Start 07/30/17 at 08:00 Vancomycin HCl (Vancocin) 250 ml @ 125 mls/hr Q8H IVPB Last administered on 08:43; Admin Dose 125 MLS/HR; Start 07/30/17 at 00:00 Miscellaneous Information (*Rx Drug Level Order Reminder*) 1 ONCE ONCE XX ; Start 07/30/17 at 23:00; Stop 07/30/17 at 23:01 RIDDHI SAM MD Jul 30, 2017 13:02
[2017-07-30 15:03] VITALS: BP 120/76; RESP 16
--- NOTE | 2017-07-30 15:09 | CONS ---
Date/Time of Note Date/Time of Note DATE: 07/30/17 TIME: 15:09 Assessment/Plan Assessment/Plan Chief Complaint/Hosp Course ID PROGRESS NOTE CURRENT ABX: DAY # =>Vanco IV + Zosyn 24H INTERVAL SUMMARY * A/A/O, responsive, polite, pleasant, good historia, feeling bettery, resting comfortably , afebrile, VSS, NAD, spouse present in room * CHART REVIEWED: See vitals, labs as per below. * MICRO REVIEWED: BCx (-); Adela: 07/29/17-699 Source: LEG WOUND CULTURE Preliminary Organism 1 STAPHYLOCOCCUS AUREUS QUANTITY 2+ SOURCE: LEFT TOE PHYSICAL EXAMINATION: GENERAL: Overweight M, VSS, afebrile, NAD HEENT: Unremarkable NECK: Supple, trach midline CHEST: Equal chest rise bilaterally, without dyspnea on observation HEART: RRR ABDOMEN: Soft, NT, ND : FC, clear yellow urine EXT: Warm, Left foot DSG C/D/I SKIN: No rash, no diaphoresis ID ASSESSMENT: 41 yo overweight M admit VPH: 1. SIRS on admission w/TMax 99.6, tachycardia HR 111, 2. Left first toe DFU infection,-> s/p I&D per air tank assembler w/wound cx growing preliminary STAPHYLOCOCCUS AUREUS 3. DM with neurological manifestations, poorly controlled w/A1C @ 11.+ % 4. Peripheral neuropathy with numbness on lower extremities, no pain ABX ALLERGIES: None to ABX INVASIVES: PIV CURRENT ABX: =>Vanco IV + Zosyn ID RECOMMENDATIONS/PLAN: 1. Continue current ABX over the weekend -> await final micro results pending 2. ID team consultants will continue to follow . Problems: Consultation Date/Type/Reason Admit Date/Time Jul 28, 2017 at 03:47 Initial Consult Date Exam/Review of Systems Vital Signs Vitals Vital Signs Date Time Temp Pulse Resp B/P Pulse Ox O2 Delivery O2 Flow Rate FiO2 07/30/17 15:03 98.2 75 16 120/76 97 07/27/17 19:15 Room Air Intake and Output 07/29/17 07/29/17 07/30/17 15:00 23:00 07:00 Intake Total 50 ml 1740 ml 1310 ml Output Total 1050 ml Balance 50 ml 690 ml 1310 ml Results Result Diagram: 07/29/17 0515 07/29/17 0515 Results 24 hrs Laboratory Tests Test 07/29/17 17:03 07/29/17 21:08 07/30/17 02:25 07/30/17 08:24 Bedside Glucose 188 181 167 193 Test 07/30/17 12:20 Bedside Glucose 147 Medications Medications Current Medications Ondansetron HCl (Zofran Inj) 4 mg Q6H PRN IV NAUSEA AND/OR VOMITING; Start at 22:30 Acetaminophen (Tylenol Tab) 650 mg Q6H PRN PO PAIN LEVEL 1-3 OR FEVER Last administered on 07/29/17 09:11; Admin Dose 650 MG; Start 07/27/17 at 22:30 Acetaminophen/ Hydrocodone Bitart ([place] (5/325)) 2 tab Q6H PRN PO SEVERE PAIN LEVEL 7-10 Last administered on 07/29/17 23:49; Admin Dose 2 TAB; Start 07/27 at 22:30 Docusate Sodium (Colace) 100 mg Q12H PRN PO CONSTIPATION; Start 07/27/17 at 22 :30 Bisacodyl (Dulcolax) 5 mg DAILY PRN PO CONSTIPATION; Start 07/27/17 at 22:30 Enoxaparin Sodium 40 mg 40 mg DAILY SC Last administered on 07/30/17 08:54; Admin Dose 40 MG; Start 07/28/17 at 09:00 Piperacillin Sod/ Tazobactam Sod (Zosyn 3.375gm/ 50 ml (Pmx)) 50 ml @ 100 mls/ hr Q6 IVPB Last administered on 07/30/17 12:24; Admin Dose 100 MLS/HR; Start 07/28/17 at 00:00 Diagnostic Test (Pha) (Accu-Chek) 1 ea 02 XX Last administered on 07/30/17 02 :32; Admin Dose 1 EA; Start 07/28/17 at 02:00 Miscellaneous Information 1 ea NOTE XX ; Start 07/27/17 at 22:45 Glucose (Glutose) 15 gm Q15M PRN PO DECREASED GLUCOSE; Start 07/27/17 at 22:45 Glucose (Glutose) 22.5 gm Q15M PRN PO DECREASED GLUCOSE; Start 07/27/17 at 22: 45 Dextrose (D50w Syringe) 25 ml Q15M PRN IV DECREASED GLUCOSE; Start 07/27/17 at 22:45 Dextrose (D50w Syringe) 50 ml Q15M PRN IV DECREASED GLUCOSE; Start 07/27/17 at 22:45 Glucagon (Glucagen) 1 mg Q15M PRN IM DECREASED GLUCOSE; Start 07/27/17 at 22: 45 Glucose (Glutose) 15 gm Q15M PRN BUCCAL DECREASED GLUCOSE; Start 07/27/17 at 22:45 Miscellaneous Information (Pending Santyl Order For Wound Care) This patient roberts... PRN PRN XX WOUND CARE; Start 07/28/17 at 06:30 Sodium Hypochlorite (Dakin'S (1/4 Strength)) 1 applic BID IRR Last administered on 07/30/17 08:43; Admin Dose 1 APPLIC; Start 07/28/17 at 21:00 Silver Sulfadiazine (Thermazene 1% 25 Gm) 1 applic BID TOP Last administered on 07/30/17 08:44; Admin Dose 1 APPLIC; Start 07/28/17 at 21:00 Insulin Glargine 12 unit 12 unit DAILY@08 SC Last administered on 07/30/17 08 :54; Admin Dose 12 UNIT; Start 07/30/17 at 08:00 Vancomycin HCl (Vancocin) 250 ml @ 125 mls/hr Q8H IVPB Last administered on 08:43; Admin Dose 125 MLS/HR; Start 07/30/17 at 00:00 Miscellaneous Information (*Rx Drug Level Order Reminder*) 1 ONCE ONCE XX ; Start 07/30/17 at 23:00; Stop 07/30/17 at 23:01 Linagliptin (Tradjenta) 5 mg DAILY PO ; Start 07/30/17 at 13:30 JOJO PADILLA NP Jul 30, 2017 15:09
[2017-07-30] MEDS: LINAGLIPTIN 5 MG TABLET PO SCH (15:25)
[2017-07-30] MEDS: HYDROCODONE/APAP (5/325) TAB PO PRN (15:26)
[2017-07-30 20:00] VITALS: BP 125/77; PULSE 73; RESP 18
[2017-07-31] MEDS: VANCOMYCIN 1 GM in NS 250 ML IVPB SCH ×3 (00:26→16:22)
[2017-07-31 02:00] VITALS: BP 124/79; PULSE 74; RESP 18
[2017-07-31] MEDS: ACCU-CHEK XX SCH (02:00)
[2017-07-31] MEDS: PIPER-TAZO 3.375 GM IV (PMX) 50 ML IVPB SCH ×4 (05:47→23:14)
[2017-07-31 08:00] VITALS: BP 150/97; PULSE 78; RESP 16
[2017-07-31] MEDS: metFORMIN 500 MG TAB PO SCH ×2 (08:22→17:25)
[2017-07-31] MEDS: LINAGLIPTIN 5 MG TABLET PO SCH (08:22)
[2017-07-31] MEDS: INSULIN ASPART [NOVOLOG] 3 ML PEN SC SCH ×5 (08:28→20:44)
[2017-07-31] MEDS: ENOXAPARIN 40 MG/0.4 ML SYG SC SCH (08:29)
[2017-07-31] MEDS: INSULIN GLARGINE [LANtus] 3 ML PEN SC SCH (08:29)
[2017-07-31] MEDS: SILVER SULFADIAZINE 1% 25 GM CR TOP SCH ×2 (08:30→20:44)
[2017-07-31] MEDS: SODIUM HYPOCHLORITE 0.125% 473 ML BTL IRR SCH ×2 (08:30→20:44)
--- NOTE | 2017-07-31 09:18 | PN ---
Date/Time of Note Date/Time of Note DATE: 07/31/17 TIME: 09:16 Assessment/Plan VTE Prophylaxis VTE Prophylaxis Intervention: heparin Lines/Catheters IV [facility]from [facility] Saline Lock Urinary Cath still in place: No Assessment/Plan Problems: (1) Acute lymphangitis of left lower extremity Status: Acute Comment: He is improved nicely. Cultures are pending after the incision and drainage and will use those culture results to guide the outpatient antibiotic therapy. This will either have to be IV or hopefully can be p.o. Our colleagues in infectious disease will give guidance (2) Hyperglycemia due to type 2 diabetes mellitus Status: Acute Comment: The patient again reiterates this to declination to use injectable therapy at home. As such we will use combination therapy and stop his insulin now in preparation to create the regimen to get him home in stable fashion. 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 Constitutional: improved, no complaints Respiratory: no complaints Cardiovascular: no complaints Gastrointestinal: no complaints Genitourinary: no complaints Exam/Review of Systems Vital Signs Vitals Vital Signs Date Time Temp Pulse Resp B/P Pulse Ox O2 Delivery O2 Flow Rate FiO2 07/31/17 02:00 97.6 74 18 124/79 99 Room Air Intake and Output 07/30/17 07/30/17 07/31/17 15:00 23:00 07:00 Intake Total 300 ml 1640 ml 850 ml Balance 300 ml 1640 ml 850 ml Exam Constitutional: alert, oriented Neck: non-tender, supple Respiratory: clear to auscultation, normal air movement Cardiovascular: nl pulses, regular rate and rhythm Gastrointestinal: nl liver, spleen, non-tender, soft Extremities: other (Foot is unchanged) Results Result Diagram: 07/29/17 0515 07/29/17 0515 Results 24 hrs Laboratory Tests Test 07/30/17 12:20 07/30/17 14:35 07/30/17 17:25 07/30/17 21:13 Bedside Glucose 147 123 102 Hepatitis B Surface Antigen NEGATIVE Hepatitis C Antibody NEGATIVE Test 07/30/17 22:50 07/31/17 08:21 Vancomycin Level Trough 15.3 Bedside Glucose 160 Medications Medications Current Medications Ondansetron HCl (Zofran Inj) 4 mg Q6H PRN IV NAUSEA AND/OR VOMITING; Start at 22:30 Acetaminophen (Tylenol Tab) 650 mg Q6H PRN PO PAIN LEVEL 1-3 OR FEVER Last administered on 07/29/17 09:11; Admin Dose 650 MG; Start 07/27/17 at 22:30 Acetaminophen/ Hydrocodone Bitart ([place] (5/325)) 2 tab Q6H PRN PO SEVERE PAIN LEVEL 7-10 Last administered on 07/30/17 15:26; Admin Dose 2 TAB; Start 07/27 at 22:30 Docusate Sodium (Colace) 100 mg Q12H PRN PO CONSTIPATION; Start 07/27/17 at 22 :30 Bisacodyl (Dulcolax) 5 mg DAILY PRN PO CONSTIPATION; Start 07/27/17 at 22:30 Enoxaparin Sodium 40 mg 40 mg DAILY SC Last administered on 07/31/17 08:29; Admin Dose 40 MG; Start 07/28/17 at 09:00 Piperacillin Sod/ Tazobactam Sod (Zosyn 3.375gm/ 50 ml (Pmx)) 50 ml @ 100 mls/ hr Q6 IVPB Last administered on 07/31/17 05:47; Admin Dose 100 MLS/HR; Start 07/28/17 at 00:00 Diagnostic Test (Pha) (Accu-Chek) 1 ea 02 XX Last administered on 07/30/17 02 :32; Admin Dose 1 EA; Start 07/28/17 at 02:00 Miscellaneous Information 1 ea NOTE XX ; Start 07/27/17 at 22:45 Glucose (Glutose) 15 gm Q15M PRN PO DECREASED GLUCOSE; Start 07/27/17 at 22:45 Glucose (Glutose) 22.5 gm Q15M PRN PO DECREASED GLUCOSE; Start 07/27/17 at 22: 45 Dextrose (D50w Syringe) 25 ml Q15M PRN IV DECREASED GLUCOSE; Start 07/27/17 at 22:45 Dextrose (D50w Syringe) 50 ml Q15M PRN IV DECREASED GLUCOSE; Start 07/27/17 at 22:45 Glucagon (Glucagen) 1 mg Q15M PRN IM DECREASED GLUCOSE; Start 07/27/17 at 22: 45 Glucose (Glutose) 15 gm Q15M PRN BUCCAL DECREASED GLUCOSE; Start 07/27/17 at 22:45 [facility] This patient roberts... PRN PRN XX WOUND CARE; Start 07/28/17 at 06:30 Sodium Hypochlorite (Dakin'S (1/4 Strength)) 1 applic BID IRR Last administered on 07/31/17 08:30; Admin Dose 1 APPLIC; Start 07/28/17 at 21:00 Silver Sulfadiazine 1 applic 1 applic BID TOP Last administered on 07/31/17 08:30; Admin Dose 1 APPLIC; Start 07/28/17 at 21:00 Vancomycin HCl (Vancocin) 250 ml @ 125 mls/hr Q8H IVPB Last administered on 08:22; Admin Dose 125 MLS/HR; Start 07/30/17 at 00:00 Linagliptin (Tradjenta) 5 mg DAILY PO Last administered on 07/31/17 08:22; Admin Dose 5 MG; Start 07/30/17 at 13:30 RIDDHI SAM MD Jul 31, 2017 09:18
--- NOTE | 2017-07-31 11:09 | CONS ---
DATE OF ADMISSION: 07/28/2017 DATE OF CONSULTATION: 07/31/2017 SUBJECTIVE FINDINGS: The patient is being followed for left foot second toe infection status post I and D with improved condition. Wound cultures positive for Staph aureus. Radiographs with osseous changes, suspicion for osteomyelitis, and long-term antibiotics are recommended for suspicion of os teomyelitis. OBJECTIVE FINDINGS: VITAL SIGNS: Temperature 97.6, pulse 74, respiratory rate 18, blood pressure 124/79. Pulse ox is 9 9% on room air. EXTREMITIES: Patient is alert and oriented. Regular respiration. 2+ DP, PT pulse, left foot. Imp roved condition of the left second toe, remains swollen but decreased lymphangitis. There is sangui neous drainage but no purulence. The patient has a decreased protective sensation. Wound cultures: Staph aureus. ASSESSMENT: 1. Left foot abscess, status post incision and drainage. 2. Left foot second toe osteomyelitis. 3. Diabetes with hyperglycemia. PLAN: The patient was seen and evaluated. Continue daily cleansing with Dakin's, application of Si lvadene. Currently, hyperglycemia is being managed and is on IV antibiotics including vancomycin an d Zosyn. Further recommendations pending ID recommendations. Suspect underlying osteomyelitis and will need long-term antibiotics. Recommend follow up as an outpatient for continuity of care. Further disposition per primary care team. Dictated By: CLAUS ORNELAS DPM RB/BERNARDINO Conf#: [id number] DID#: [id number] CC: Diamond Cortez;*EndCC*
--- NOTE | 2017-07-31 15:47 | CONS ---
Date/Time of Note Date/Time of Note DATE: 07/31/17 TIME: 15:39 Assessment/Plan Assessment/Plan Chief Complaint/Hosp Course ID PROGRESS NOTE CURRENT ABX: DAY # =>Vanco IV + Zosyn 24H INTERVAL SUMMARY * Resting comfortably, no fevers, VSS, NAD * 09/28/16 SOURCE: LEFT TOE WOUND CULTURE Final Organism 1 STAPHYLOCOCCUS AUREUS QUANTITY 2+ S AUREUS M.I.C. RX --------- --- CEFACLOR S CEFAZOLIN S CIPROFLOXACIN <=0.5 S CLINDAMYCIN <=0.25 S DOXYCYCLINE S ERYTHROMYCIN <=0.25 S LEVOFLOXACIN 0.25 S OXACILLIN <=0.25 S PENICILLIN-G R RIFAMPIN <=0.5 S VANCOMYCIN <=0.5 S TRIMETHOPRIM/SULFAMETHOXAZOLE <=10 S PHYSICAL EXAMINATION: GENERAL: Overweight M, VSS, afebrile, NAD HEENT: Unremarkable NECK: Supple, trach midline CHEST: Equal chest rise bilaterally, without dyspnea on observation HEART: RRR ABDOMEN: Soft, NT, ND : FC, clear yellow urine EXT: Warm, Left foot DSG C/D/I SKIN: No rash, no diaphoresis ID ASSESSMENT: 41 yo overweight M admit VPH: 1. SIRS on admission w/TMax 99.6, tachycardia HR 111, 2. Left first toe DFU infection,-> s/p I&D per belt puncher w/wound cx growing preliminary STAPHYLOCOCCUS AUREUS = MIGUEL 3. DM with neurological manifestations, poorly controlled w/A1C @ 11.+ % 4. Peripheral neuropathy with numbness on lower extremities, no pain ABX ALLERGIES: None to ABX INVASIVES: PIV CURRENT ABX: =>Vanco IV + Zosyn ID RECOMMENDATIONS/PLAN: 1. Continue current ABX over the weekend -> will discuss DC ABX w/ID team Ceftriaxone 2gm IVB daily vs alternative PO Bactrim ? * Await d/w ID team & podiatry recs if he needs IV 2. ID team consultants will continue to follow . Problems: Consultation Date/Type/Reason Admit Date/Time Jul 28, 2017 at 03:47 Exam/Review of Systems Vital Signs Vitals Vital Signs Date Time Temp Pulse Resp B/P Pulse Ox O2 Delivery O2 Flow Rate FiO2 07/31/17 08:00 97.7 78 16 150/97 100 Room Air Intake and Output 07/30/17 07/30/17 07/31/17 15:00 23:00 07:00 Intake Total 300 ml 1640 ml 850 ml Balance 300 ml 1640 ml 850 ml Results Result Diagram: 07/29/17 0515 07/29/17 0515 Results 24 hrs Laboratory Tests Test 07/30/17 17:25 07/30/17 21:13 07/30/17 22:50 07/31/17 08:21 Bedside Glucose 123 102 160 Vancomycin Level Trough 15.3 Test 07/31/17 12:24 Bedside Glucose 101 Medications Medications Current Medications Ondansetron HCl (Zofran Inj) 4 mg Q6H PRN IV NAUSEA AND/OR VOMITING; Start at 22:30 Acetaminophen (Tylenol Tab) 650 mg Q6H PRN PO PAIN LEVEL 1-3 OR FEVER Last administered on 07/29/17 09:11; Admin Dose 650 MG; Start 07/27/17 at 22:30 Acetaminophen/ Hydrocodone Bitart ([place] (5/325)) 2 tab Q6H PRN PO SEVERE PAIN LEVEL 7-10 Last administered on 07/30/17 15:26; Admin Dose 2 TAB; Start 07/27 at 22:30 Docusate Sodium (Colace) 100 mg Q12H PRN PO CONSTIPATION; Start 07/27/17 at 22 :30 Bisacodyl (Dulcolax) 5 mg DAILY PRN PO CONSTIPATION; Start 07/27/17 at 22:30 Enoxaparin Sodium 40 mg 40 mg DAILY SC Last administered on 07/31/17 08:29; Admin Dose 40 MG; Start 07/28/17 at 09:00 Piperacillin Sod/ Tazobactam Sod (Zosyn 3.375gm/ 50 ml (Pmx)) 50 ml @ 100 mls/ hr Q6 IVPB Last administered on 07/31/17 12:26; Admin Dose 100 MLS/HR; Start 07/28/17 at 00:00 Diagnostic Test (Pha) (Accu-Chek) 1 ea 02 XX Last administered on 07/30/17 02 :32; Admin Dose 1 EA; Start 07/28/17 at 02:00 Miscellaneous Information 1 ea NOTE XX ; Start 07/27/17 at 22:45 Glucose (Glutose) 15 gm Q15M PRN PO DECREASED GLUCOSE; Start 07/27/17 at 22:45 Glucose (Glutose) 22.5 gm Q15M PRN PO DECREASED GLUCOSE; Start 07/27/17 at 22: 45 Dextrose (D50w Syringe) 25 ml Q15M PRN IV DECREASED GLUCOSE; Start 07/27/17 at 22:45 Dextrose (D50w Syringe) 50 ml Q15M PRN IV DECREASED GLUCOSE; Start 07/27/17 at 22:45 Glucagon (Glucagen) 1 mg Q15M PRN IM DECREASED GLUCOSE; Start 07/27/17 at 22: 45 Glucose (Glutose) 15 gm Q15M PRN BUCCAL DECREASED GLUCOSE; Start 07/27/17 at 22:45 Miscellaneous Information (Pending [facility] Order For Wound Care) This patient roberts... PRN PRN XX WOUND CARE; Start 07/28/17 at 06:30 Sodium Hypochlorite (Dakin'S (1/4 Strength)) 1 applic BID IRR Last administered on 07/31/17 08:30; Admin Dose 1 APPLIC; Start 07/28/17 at 21:00 Silver Sulfadiazine 1 applic 1 applic BID TOP Last administered on 07/31/17 08:30; Admin Dose 1 APPLIC; Start 07/28/17 at 21:00 Vancomycin HCl (Vancocin) 250 ml @ 125 mls/hr Q8H IVPB Last administered on 08:22; Admin Dose 125 MLS/HR; Start 07/30/17 at 00:00 Linagliptin (Tradjenta) 5 mg DAILY PO Last administered on 07/31/17 08:22; Admin Dose 5 MG; Start 07/30/17 at 13:30 JOJO PADILLA NP Jul 31, 2017 15:47
[2017-07-31] MEDS ORDERED: GLIMEPIRIDE 2 MG TAB PO SCH (17:45)
[2017-07-31 19:47] VITALS: BP 145/91; PULSE 78; RESP 19
[2017-07-31] MEDS: ACETAMINOPHEN 325 MG TAB PO PRN (19:52)
[2017-08-01] MEDS: VANCOMYCIN 1 GM in NS 250 ML IVPB SCH ×2 (00:01→08:49)
[2017-08-01 01:15] VITALS: BP 126/78; PULSE 78; RESP 17
[2017-08-01] MEDS: ACCU-CHEK XX SCH (02:00)
[2017-08-01] MEDS: PIPER-TAZO 3.375 GM IV (PMX) 50 ML IVPB SCH ×2 (05:35→12:07)
[2017-08-01] MEDS: INSULIN ASPART [NOVOLOG] 3 ML PEN SC SCH ×4 (08:15→20:51)
[2017-08-01 08:20] VITALS: BP 124/85; RESP 14
[2017-08-01] MEDS: metFORMIN 500 MG TAB PO SCH ×2 (08:50→17:19)
[2017-08-01] MEDS: GLIMEPIRIDE 2 MG TAB PO SCH (08:50)
[2017-08-01] MEDS: LINAGLIPTIN 5 MG TABLET PO SCH (08:50)
[2017-08-01] MEDS: SILVER SULFADIAZINE 1% 25 GM CR TOP SCH ×2 (08:51→20:52)
[2017-08-01] MEDS: SODIUM HYPOCHLORITE 0.125% 473 ML BTL IRR SCH ×2 (08:51→20:52)
[2017-08-01] MEDS: ENOXAPARIN 40 MG/0.4 ML SYG SC SCH (08:59)
--- NOTE | 2017-08-01 14:04 | PN ---
Date/Time of Note Date/Time of Note DATE: 08/01/17 TIME: 14:04 Assessment/Plan VTE Prophylaxis VTE Prophylaxis Intervention: LMWH Lines/Catheters [facility] Saline Lock Urinary Cath still in place: No Assessment/Plan Chief Complaint/Hosp Course 41-year-old male with a history of type 2 diabetes, presented to the emergency room with worsening left foot swelling and redness. 1. Left second toe diabetic ulcer with cellulitis/abscess. -Status post incision and drainage by podiatry. -Continue wound care with Dakin's, continue antibiotics. 2. Type 2 diabetes. -Patient has been transitioned to oral agents in preparation for discharge planning as he is with lack of insurance and poor medical compliance for insulin therapy as outpatient. -Currently patient with stable glycemic control. 3. Peripheral neuropathy. -Continue gabapentin. 4. Obesity with BMI 30.9. -Lifestyle changes/weight reduction advised. Plan: Follow-up with podiatry and ID recommendation on further antibiotic regimen for outpatient therapy. We will also request case management for setting up home health for wound care management. Patient was seen in collaboration with Dr. Buckley. Problems: Subjective 24 Hr Interval Summary Free Text/Dictation Patient sitting up in chair. He currently has no pain to his left foot. Doing well. Exam/Review of Systems Vital Signs Vitals Vital Signs Date Time Temp Pulse Resp B/P Pulse Ox O2 Delivery O2 Flow Rate FiO2 08/01/17 08:20 97.3 85 14 124/85 97 08/01/17 01:15 Room Air Intake and Output 07/31/17 07/31/17 08/01/17 14:59 22:59 06:59 Intake Total 50 ml 300 ml 710 ml Balance 50 ml 300 ml 710 ml Exam General: Well developed,adequately built, not in any acute distress . HEENT: Normocephalic, Atraumatic, No laceration or hematoma; Eyes: PEERL, Conjunctiva clear, Anicteric sclera Neck: Supple without any lymphadenopathy, nontender, no JVD, no carotid bruits, trachea midline, no thyromegaly Cardiac: S1, S2 auscultated, regular rhythm and rate, no mumurs or gallop Pulmonary: Normal respiratory effort. Chest clear to auscultation bilaterally, no adventitious breath sounds GI: Abdomen normal to inspection. Soft, non tender, non- distended, no masses, no rebound tenderness or guarding. Bowel sounds active on all four quadrants Genitourinary: Deferred Extremities: Left foot with dressing intact. Patient has ulcerated left second toe. Pulses [2+] bilaterally. Full ROM on all four extremities. No focal weakness appreciated. Neurologic: Alert to person, place, time, and situation. Affect appropriate, intact sensation. Skin: Clean,dry, and intact. No ecchymosis, no rashes, or lesions Results Result Diagram: 07/29/1751407/29/1715 Results 24 hrs Laboratory Tests Test 07/31/17 17:23 07/31/17 20:43 08/01/17 08:40 08/01/17 12:06 Bedside Glucose 119 109 118 130 Medications Medications Current Medications Ondansetron HCl (Zofran Inj) 4 mg Q6H PRN IV NAUSEA AND/OR VOMITING; Start at 22:30 Acetaminophen (Tylenol Tab) 650 mg Q6H PRN PO PAIN LEVEL 1-3 OR FEVER Last administered on 07/31/17 19:52; Admin Dose 650 MG; Start 07/27/17 at 22:30 Acetaminophen/ Hydrocodone Bitart ([place] (5/325)) 2 tab Q6H PRN PO SEVERE PAIN LEVEL 7-10 Last administered on 07/30/17 15:26; Admin Dose 2 TAB; Start 07/27 at 22:30 Docusate Sodium (Colace) 100 mg Q12H PRN PO CONSTIPATION; Start 07/27/17 at 22 :30 Bisacodyl (Dulcolax) 5 mg DAILY PRN PO CONSTIPATION; Start 07/27/17 at 22:30 Enoxaparin Sodium 40 mg 40 mg DAILY SC Last administered on 08/01/17 08:59; Admin Dose 40 MG; Start 07/28/17 at 09:00 Piperacillin Sod/ Tazobactam Sod (Zosyn 3.375gm/ 50 ml (Pmx)) 50 ml @ 100 mls/ hr Q6 IVPB Last administered on 08/01/17 12:07; Admin Dose 100 MLS/HR; Start 07/28/17 at 00:00 Diagnostic Test (Pha) (Accu-Chek) 1 ea 02 XX Last administered on 07/30/17 02 :32; Admin Dose 1 EA; Start 07/28/17 at 02:00 Miscellaneous Information 1 ea NOTE XX ; Start 07/27/17 at 22:45 Glucose (Glutose) 15 gm Q15M PRN PO DECREASED GLUCOSE; Start 07/27/17 at 22:45 Glucose (Glutose) 22.5 gm Q15M PRN PO DECREASED GLUCOSE; Start 07/27/17 at 22: 45 Dextrose (D50w Syringe) 25 ml Q15M PRN IV DECREASED GLUCOSE; Start 07/27/17 at 22:45 Dextrose (D50w Syringe) 50 ml Q15M PRN IV DECREASED GLUCOSE; Start 07/27/17 at 22:45 Glucagon (Glucagen) 1 mg Q15M PRN IM DECREASED GLUCOSE; Start 07/27/17 at 22: 45 Glucose (Glutose) 15 gm Q15M PRN BUCCAL DECREASED GLUCOSE; Start 07/27/17 at 22:45 Miscellaneous Information (Pending [facility] Order For Wound Care) This patient roberts... PRN PRN XX WOUND CARE; Start 07/28/17 at 06:30 Sodium Hypochlorite (Dakin'S (1/4 Strength)) 1 applic BID IRR Last administered on 08/01/17 08:51; Admin Dose 1 APPLIC; Start 07/28/17 at 21:00 Silver Sulfadiazine 1 applic 1 applic BID TOP Last administered on 08/01/17 08:51; Admin Dose 1 APPLIC; Start 07/28/17 at 21:00 Vancomycin HCl (Vancocin) 250 ml @ 125 mls/hr Q8H IVPB Last administered on 08:49; Admin Dose 125 MLS/HR; Start 07/30/17 at 00:00 Linagliptin (Tradjenta) 5 mg DAILY PO Last administered on 08/01/17 08:50; Admin Dose 5 MG; Start 07/30/17 at 13:30 QUANG DEL VALLE NP Aug 01, 2017 14:04
[2017-08-01 14:05] VITALS: BP 109/71; RESP 16
[2017-08-01 14:51] LABS: MICROALBUMIN 1.8 mg/dL
--- NOTE | 2017-08-01 15:50 | PN ---
DATE: 08/01/2017 SUBJECTIVE: No acute changes. The patient is alert, feels good. Denies pain, discomfort. No feve rs. LABORATORY DATA: No labs this morning. MICROBIOLOGY: Wound culture grew oxacillin-sensitive Staphylococcus aureus susceptible to ciproflox acin. PHYSICAL EXAMINATION: GENERAL: Well-developed, middle-aged man who is alert, in no distress. HEENT: Head atraumatic, normocephalic. Sclerae anicteric. Buccal mucosa pink. CHEST: Rise symmetrical. Breath sounds clear. HEART: S1, S2. ABDOMEN: Soft, bowel tones present. EXTREMITIES: Without cyanosis. SKIN: Left foot dressing intact. ASSESSMENT: 1. Left foot cellulitis with abscess and possibility of osteomyelitis as per podiatry note, status post incision and drainage. 2. Left foot second toe osteomyelitis. 3. Diabetes with diabetic neuropathy. PLAN: The patient remains stable. We are going to change antibiotics to oral ciprofloxacin and justina p him on antibiotics for 6 weeks. Follow with podiatry for further recommendations. Continue repea t MRI of the foot prior to discontinuation of therapy. Dictated By: DORIAN SAUNDERS INDUSTRIAL DIAMOND POLISHER for MAUREEN MATOS MD NI/NTS Conf#: [id number] DID#: [id number]
[2017-08-01] MEDS: CIPROFLOXACIN 500 MG TAB PO SCH (17:19)
[2017-08-01 19:54] VITALS: BP 124/79; RESP 17
[2017-08-02] MEDS: ACCU-CHEK XX SCH (02:00)
[2017-08-02 02:16] VITALS: BP 120/79; RESP 17
[2017-08-02] MEDS: CIPROFLOXACIN 500 MG TAB PO SCH (05:58)
[2017-08-02 08:06] VITALS: BP 112/72; RESP 14
[2017-08-02] MEDS: metFORMIN 500 MG TAB PO SCH (08:20)
[2017-08-02] MEDS: LINAGLIPTIN 5 MG TABLET PO SCH (08:20)
[2017-08-02] MEDS: SILVER SULFADIAZINE 1% 25 GM CR TOP SCH (08:21)
[2017-08-02] MEDS: SODIUM HYPOCHLORITE 0.125% 473 ML BTL IRR SCH (08:21)
[2017-08-02] MEDS: ENOXAPARIN 40 MG/0.4 ML SYG SC SCH (08:22)
[2017-08-02] MEDS: INSULIN ASPART [NOVOLOG] 3 ML PEN SC SCH ×2 (08:24→12:15)
[2017-08-02] MEDS: GLIMEPIRIDE 2 MG TAB PO SCH (08:53)
--- NOTE | 2017-08-02 10:37 | PN ---
Date/Time of Note Date/Time of Note DATE: 08/02/17 TIME: 10:37 Assessment/Plan Lines/Catheters IV Catheter Type (from Nrs): Saline Lock Urinary Cath still in place: No Assessment/Plan Chief Complaint/Hosp Course 41-year-old male with a history of type 2 diabetes, presented to the emergency room with worsening left foot swelling and redness. 1. Left second toe diabetic ulcer with cellulitis/abscess. -Status post incision and drainage by podiatry. -Continue wound care with Dakin's, continue antibiotics. 2. Type 2 diabetes. -Patient has been transitioned to oral agents in preparation for discharge planning as he is with lack of insurance and poor medical compliance for insulin therapy as outpatient. -Currently patient with stable glycemic control. 3. Peripheral neuropathy. -Continue gabapentin. 4. Obesity with BMI 30.9. -Lifestyle changes/weight reduction advised. Plan: Follow-up with podiatry and ID recommendation on further antibiotic regimen for outpatient therapy. We will also request case management for setting up home health for wound care management. Patient was seen in collaboration with Dr. Buckley. Problems: Exam/Review of Systems Vital Signs Vitals Vital Signs Date Time Temp Pulse Resp B/P Pulse Ox O2 Delivery O2 Flow Rate FiO2 08/02/17 08:06 98.2 76 14 112/72 98 08/01/17 01:15 Room Air Intake and Output 08/01/17 08/01/17 08/02/17 15:00 23:00 07:00 Intake Total 300 ml 2300 ml 300 ml Balance 300 ml 2300 ml 300 ml Results Result Diagram: 07/29/17 0515 07/29/17 0515 Results 24 hrs Laboratory Tests Test 08/01/17 12:06 08/01/17 17:18 08/01/17 20:50 08/02/17 08:19 Bedside Glucose 130 89 83 142 Medications Medications Current Medications Ondansetron HCl (Zofran Inj) 4 mg Q6H PRN IV NAUSEA AND/OR VOMITING; Start at 22:30 Acetaminophen (Tylenol Tab) 650 mg Q6H PRN PO PAIN LEVEL 1-3 OR FEVER Last administered on 07/31/17t 19:52; Admin Dose 650 MG; Start 07/27/17 at 22:30 Acetaminophen/ Hydrocodone Bitart ([place] (5/325)) 2 tab Q6H PRN PO SEVERE PAIN LEVEL 7-10 Last administered on 07/30/17 15:26; Admin Dose 2 TAB; Start 07/27 at 22:30 Docusate Sodium (Colace) 100 mg Q12H PRN PO CONSTIPATION; Start 07/27/17 at 22 :30 Bisacodyl (Dulcolax) 5 mg DAILY PRN PO CONSTIPATION; Start 07/27/17 at 22:30 Enoxaparin Sodium (Lovenox) 40 mg DAILY SC Last administered on 08/02/17 08: 22; Admin Dose 40 MG; Start 07/28/17 at 09:00 Diagnostic Test (Pha) (Accu-Chek) 1 ea 02 XX Last administered on 07/30/17 02 :32; Admin Dose 1 EA; Start 07/28/17 at 02:00 Miscellaneous Information 1 ea NOTE XX ; Start 07/27/17 at 22:45 Glucose (Glutose) 15 gm Q15M PRN PO DECREASED GLUCOSE; Start 07/27/17 at 22:45 Glucose (Glutose) 22.5 gm Q15M PRN PO DECREASED GLUCOSE; Start 07/27/17 at 22: 45 Dextrose (D50w Syringe) 25 ml Q15M PRN IV DECREASED GLUCOSE; Start 07/27/17 at 22:45 Dextrose (D50w Syringe) 50 ml Q15M PRN IV DECREASED GLUCOSE; Start 07/27/17 at 22:45 Glucagon (Glucagen) 1 mg Q15M PRN IM DECREASED GLUCOSE; Start 07/27/17 at 22: 45 Glucose (Glutose) 15 gm Q15M PRN BUCCAL DECREASED GLUCOSE; Start 07/27/17 at 22:45 Miscellaneous Information (Pending [facility] Order For Wound Care) This patient roberts... PRN PRN XX WOUND CARE; Start 07/28/17 at 06:30 Sodium Hypochlorite (Dakin'S (1/4 Strength)) 1 applic BID IRR Last administered on 08/02/17 08:21; Admin Dose 1 APPLIC; Start 07/28/17 at 21:00 Silver Sulfadiazine (Thermazene 1% 25 Gm) 1 applic BID TOP Last administered on 08/02/17 08:21; Admin Dose 1 APPLIC; Start 07/28/17 at 21:00 Linagliptin (Tradjenta) 5 mg DAILY PO Last administered on 08/02/17 08:20; Admin Dose 5 MG; Start 07/30/17 at 13:30 Ciprofloxacin (Cipro) 500 mg BID@ PO Last administered on 08/02/17 05:58 ; Admin Dose 500 MG; Start 08/01/17 at 18:00 QUANG DEL VALLE NP Aug 02, 2017 10:37
--- NOTE | 2017-08-02 11:00 | PDOCDIS ---
Discharge Instructions CONDITION Patient Condition: Stable HOME CARE INSTRUCTIONS: Special Diet: Carbohydrate Control FOLLOW UP/APPOINTMENTS Follow-up Plan 1.Follow-up with in 2 weeks [id number] [place] [address] Office 2.Follow up with primary care physician in 1 week If you don't have one please let someone know, we can give you resources that may help you pick one. You may also call your insurance company to assign one to you. Review your medication list with your nurse before leaving and if you need new prescriptions please let your nurse know. I may have made changes to your home medications or given you new prescriptions, please let your primary doctor know as well. Stay compliant with your medications and report any side effects to your PCP or pharmacist. Return to the ER if you have any concerns and cannot reach your doctors or call your insurance company, they usually have a nurse that can help you. 3. Call 911 or go to the nearest emergency room if experiencing loss of consciousness, dizziness, chest pain, shortness of breath, vomiting/abdominal pain, speech difficulties, motor weakness or any unusual symptoms. QUANG DEL VALLE NP Aug 02, 2017 10:59
[2017-08-02] MEDS ORDERED: SILV25CR7 TOP (11:04)
[2017-08-02] MEDS ORDERED: CIPR500T4 PO (11:04)
[2017-08-02] MEDS ORDERED: LINA5TAB PO (11:04)
[2017-08-02] MEDS ORDERED: GLIM2TAB47 PO (11:04)
[2017-08-02] MEDS ORDERED: METF500T PO (11:04)
[2017-08-02] MEDS ORDERED: [UNRECOGNIZED DRUG - CODE] IRR (11:04)
--- NOTE | 2017-08-02 11:07 | DS ---
Date/Time of Note Date/Time of Note DATE: 08/02/17 TIME: 11:07 Discharge Summary Admission/Discharge Info Admit Date/Time Jul 28, 2017 at 03:47 Discharge Date/Time Discharge Diagnosis 1. Left second toe diabetic ulcer with cellulitis/abscess.Status post incision and drainage by podiatry. 2. Poorly controlled Type 2 diabetes. 3. Peripheral neuropathy. 4. Obesity with BMI 30.9. Patient Condition: Stable Consults ,Podiatry ,ID Procedures 07/28/2017. Left foot x-ray. IMPRESSION: 1. Soft tissue swelling overlying the first and second toe. 2. 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 3. Otherwise unremarkable images of the left foot. 07/29/2017. Incision and drainage for cleansing the tunneling wound performed at bedside Hospital Course This is a 41-year-old male with lack of access to healthcare, history of type 2 diabetes which is poorly controlled, obesity, presented to the emergency room for evaluation of infected ingrowing nail to left foot. Patient was admitted for antibiotic management. He was continued on broad-spectrum IV antibiotics. Patient was evaluated by psychologist clinical and ID colleagues. He was noted with left second toe ulceration with abscess and cellulitis for which we discussed diagnosis and treatment options. Given the severity, he was at risk for amputation of toe. Patient elected salvage and therefore incision and drainage for cleansing the tunneling wound performed at bedside. There was also suspicion of osteomyelitis. He was continued on wound care with Dakin solution and Silvadene with recommendation of continuation of antibiotics for 4-6 weeks. He was noted with an A1c of 11.1. Patient was initially treated with insulin for diabetes. However, due to his lack of insurance and poor access to healthcare , he was then successfully transitioned to oral diabetic agents. Blood sugar remained stable on oral agents. Wound cultures show staph aureus. As per ID recommendation, patient can be discharged on oral Cipro twice daily for 6 weeks with outpatient podiatry follow-up with the recommendation of MRI after antibiotic course. Disposition: Patient will be discharged home. He was given education on daily wound care. Patient was also given prescription for his diabetic medications as well as antibiotics. He was also instructed to follow-up with [facility] [facility] as he is now enrolled for medical insurance with [employer] where he can be further managed for his diabetes and associated complications. He was also instructed on lifestyle changes and weight reduction for underlying obesity. Patient and family verbalized discharge instructions. Approximately 1600 spent in coordinating the discharge on this patient. Patient is seen in collaboration with Dr. Buckley. Home Meds Active Scripts Sodium Hypochlorite (Dakin's) 473 Ml Solution, 10 ML IRR DAILY, #1 BOT CLEANSE LEFT FOOT WITH SOLUTION FIRST AND THEN APPLY PRESCRIBED SILVADENE OINTMENT. APPLY GAUZE DRESSING. Prov:QUANG DEL VALLE NP 08/02/17 Silver Sulfadiazine (Silver Sulfadiazine) 25 Gm Cream..g., 1 APPLIC TOP BID, #2 TUB APPLY TO LEFT FOOT SECOND TOE Prov:QUANG DEL VALLE NP 08/02/17 Metformin Hcl (Glucophage) 500 Mg Tablet, 1000 MG PO BID WITH MEALS, #60 TAB 2 Refills Prov:QUANG DEL VALLE NP 08/02/17 Linagliptin (TRADJENTA) 5 Mg Tablet, 5 MG PO DAILY, #30 TAB 2 Refills Prov:QUANG DEL VALLE NP 08/02/17 Glimepiride* (Amaryl*) 2 Mg Tablet, 1 MG PO AC BREAKFAST, #30 TAB 2 Refills Prov:SALLY DEL VALLEA Emilio [employer] REPRESENTATIVE 08/02/17 Ciprofloxacin Hcl* (Ciprofloxacin Hcl*) 500 Mg Tablet, 500 MG PO BID@06,18 for 42 Days, #84 TAB X6 WEEKS Prov:QUANG DEL VALLE NP 08/02/17 Discontinued Scripts Metformin* (Glucophage*) 500 Mg Tab, 500 MG PO DAILY, #30 TAB Prov:ELIZA WELLS MD 12/14/15 Diflunisal (Dolobid) 500 Mg Tablet, 500 MG PO BID for PAIN, #8 TAB With Food or milk Prov:ELIZA WELLS MD 12/14/15 Follow-up Plan 1.Follow-up with in 2 weeks [address] [place] [address] Office 2.Follow up with primary care physician in 1 week If you don't have one please let someone know, we can give you resources that may help you pick one. You may also call your insurance company to assign one to you. Review your medication list with your nurse before leaving and if you need new prescriptions please let your nurse know. I may have made changes to your home medications or given you new prescriptions, please let your primary doctor know as well. Stay compliant with your medications and report any side effects to your PCP or pharmacist. Return to the ER if you have any concerns and cannot reach your doctors or call your insurance company, they usually have a nurse that can help you. 3. Call 911 or go to the nearest emergency room if experiencing loss of consciousness, dizziness, chest pain, shortness of breath, vomiting/abdominal pain, speech difficulties, motor weakness or any unusual symptoms. Primary Care Provider Care Physician No Primary Pending Labs Laboratory Tests Test 08/01/17 12:06 08/01/17 17:18 08/01/17 20:50 08/02/17 08:19 Bedside Glucose 130mg/dL (70-220) 89mg/dL (70-220) 83mg/dL (70-220) 142mg/dL (70-220) QUANG DEL VALLE NP Aug 02, 2017 11:07
--- NOTE | 2017-08-02 13:30 | CONS ---
Date/Time of Note Date/Time of Note DATE: 08/02/17 TIME: 13:28 Assessment/Plan Assessment/Plan Chief Complaint/Hosp Course SUBJECTIVE: No acute changes. The patient is alert, feels good. Denies pain, discomfort. No fevers. MICROBIOLOGY: Wound culture grew oxacillin-sensitive Staphylococcus aureus susceptible to ciprofloxacin. PHYSICAL EXAMINATION: GENERAL: Well-developed, middle-aged man who is alert, in no distress. HEENT: Head atraumatic, normocephalic. Sclerae anicteric. Buccal mucosa pink. CHEST: Rise symmetrical. Breath sounds clear. HEART: S1, S2. ABDOMEN: Soft, bowel tones present. EXTREMITIES: Without cyanosis. SKIN: Left foot dressing intact. ASSESSMENT: 1. Left foot cellulitis with abscess and possibility of osteomyelitis as per podiatry note, status post incision and drainage. 2. Left foot second toe osteomyelitis. 3. Diabetes with diabetic neuropathy. PLAN: The patient remains stable. Pending dc on PO Cipro for 6 weeks, f/u with podiatry. Consider repeat MRI of the foot prior to discontinuation of abx therapy. Problems: Consultation Date/Type/Reason Admit Date/Time Jul 28, 2017 at 03:47 Initial Consult Date Type of Consultation: id Exam/Review of Systems Vital Signs Vitals Vital Signs Date Time Temp Pulse Resp B/P Pulse Ox O2 Delivery O2 Flow Rate FiO2 08/02/17 08:06 98.2 76 14 112/72 98 08/01/17 01:15 Room Air Intake and Output 08/01/17 08/01/17 08/02/17 14:59 22:59 06:59 Intake Total 300 ml 2300 ml 300 ml Balance 300 ml 2300 ml 300 ml Results Result Diagram: 07/29/17 0515 07/29/17 0515 Results 24 hrs Laboratory Tests Test 08/01/17 17:18 08/01/17 20:50 08/02/17 08:19 08/02/17 12:20 Bedside Glucose 89 83 142 81 Medications Medications Current Medications Ondansetron HCl (Zofran Inj) 4 mg Q6H PRN IV NAUSEA AND/OR VOMITING; Start at 22:30 Acetaminophen (Tylenol Tab) 650 mg Q6H PRN PO PAIN LEVEL 1-3 OR FEVER Last administered on 07/31/17t 19:52; Admin Dose 650 MG; Start 07/27/17 at 22:30 Acetaminophen/ Hydrocodone Bitart ([place] (5/325)) 2 tab Q6H PRN PO SEVERE PAIN LEVEL 7-10 Last administered on 07/30/17 15:26; Admin Dose 2 TAB; Start 07/27 at 22:30 Docusate Sodium (Colace) 100 mg Q12H PRN PO CONSTIPATION; Start 07/27/17 at 22 :30 Bisacodyl (Dulcolax) 5 mg DAILY PRN PO CONSTIPATION; Start 07/27/17 at 22:30 Enoxaparin Sodium (Lovenox) 40 mg DAILY SC Last administered on 08/02/17 08: 22; Admin Dose 40 MG; Start 07/28/17 at 09:00 Diagnostic Test (Pha) (Accu-Chek) 1 ea 02 XX Last administered on 07/30/17 02 :32; Admin Dose 1 EA; Start 07/28/17 at 02:00 Miscellaneous Information 1 ea NOTE XX ; Start 07/27/17 at 22:45 Glucose (Glutose) 15 gm Q15M PRN PO DECREASED GLUCOSE; Start 07/27/17 at 22:45 Glucose (Glutose) 22.5 gm Q15M PRN PO DECREASED GLUCOSE; Start 07/27/17 at 22: 45 Dextrose (D50w Syringe) 25 ml Q15M PRN IV DECREASED GLUCOSE; Start 07/27/17 at 22:45 Dextrose (D50w Syringe) 50 ml Q15M PRN IV DECREASED GLUCOSE; Start 07/27/17 at 22:45 Glucagon (Glucagen) 1 mg Q15M PRN IM DECREASED GLUCOSE; Start 07/27/17 at 22: 45 Glucose (Glutose) 15 gm Q15M PRN BUCCAL DECREASED GLUCOSE; Start 07/27/17 at 22:45 Miscellaneous Information (Pending Santyl Order For Wound Care) This patient roberts... PRN PRN XX WOUND CARE; Start 07/28/17 at 06:30 Sodium Hypochlorite (Dakin'S (1/4 Strength)) 1 applic BID IRR Last administered on 08/02/17 08:21; Admin Dose 1 APPLIC; Start 07/28/17 at 21:00 Silver Sulfadiazine (Thermazene 1% 25 Gm) 1 applic BID TOP Last administered on 08/02/17 08:21; Admin Dose 1 APPLIC; Start 07/28/17 at 21:00 Linagliptin (Tradjenta) 5 mg DAILY PO Last administered on 08/02/17 08:20; Admin Dose 5 MG; Start 07/30/17 at 13:30 Ciprofloxacin (Cipro) 500 mg BID@,18 PO Last administered on 08/02/17 05:58 ; Admin Dose 500 MG; Start 08/01/17 at 18:00 DORIAN SAUNDERS NP Aug 02, 2017 13:30
== END 2017-08-02 16:20 | disposition home or self-care (01) | DRG 638 ==
LOC: FTE 14:03 → MS2 17:38 → OBSVTOIN 07-28 03:47
PROVIDERS: ADMIT Internal Medicine; ATTEND Internal Medicine
PROC: 0Y9N0ZZ Drainage of Left Foot, Open Approach (ICD-10-PCS; principal; 2017-07-29)
DX: E11.621 Type 2 diabetes mellitus with foot ulcer (principal); L03.116 Cellulitis of left lower limb; M86.8X7 Other osteomyelitis, ankle and foot; E11.42 Type 2 diabetes mellitus with diabetic polyneuropathy; L02.612 Cutaneous abscess of left foot; L97.529 Non-pressure chronic ulcer of other part of left foot with unspecified severity; E11.65 Type 2 diabetes mellitus with hyperglycemia; L60.0 Ingrowing nail; E66.9 Obesity, unspecified; Z68.30 Body mass index [BMI] 30.0-30.9, adult; Z91.14 Patient's other noncompliance with medication regimen; E11.69 Type 2 diabetes mellitus with other specified complication; L03.032 Cellulitis of left toe; B95.61 Methicillin susceptible Staphylococcus aureus infection as the cause of diseases classified elsewhere
CPT/HCPCS: 80048; 80053; 80061; 80202; 82043; 82962; 83036; 83735; 84443; 85025; 85610; 85730; 86803; 87040; 87070; 87340; 96374; 96375; 97161; G0378; J1650; J1815; J2543; J3370; J7030; J7050